=== PATIENT | male | born 1975 | race Caucasian/White ===

== ENCOUNTER 2019-07-06 13:33 | Emergency (ER) | payer SELFPAY ==
[~2019-07-06] VITALS: Ht 165.1 cm; Wt 90.7 kg
[2019-07-06 13:55] VITALS: BP 137/87
[2019-07-06 14:33] LABS: INFLUENZA A PATIENT NEGATIVE (NEGATIVE); INFLUENZA B PATIENT NEGATIVE (NEGATIVE)
--- NOTE | 2019-07-06 15:02 | RAD ---
EXAM: Chest, 2 views. HISTORY: Cough. COMPARISON: None. FINDINGS: 2 views of the chest are obtained. There is a right infrahilar interstitial infiltrate. There is retrocardiac opacity likely due to pulmonary vascular shadows. There is no pleural effusion or pneumothorax. The heart is normal in size. IMPRESSION: Right infrahilar infiltrate. Electronically signed by: Vane Woo MD (07/06/2019 2:59 PM) [place] [id number]
[2019-07-06] MEDS ORDERED: DOXY100T PO (15:24)
[2019-07-06] MEDS ORDERED: ALBU2.5V8 IH (15:24)
[2019-07-06] MEDS ORDERED: PRED50TA PO (15:24)
--- NOTE | 2019-07-06 15:25 | PHYS DOC ---
Adult General Chief Complaint Chief Complaint: COUGH HPI HPI Patient is a 43 year old male who presents to the ED today complaining of cough and nasal congestion, symptoms began yesterday. Review of Systems Review of Systems Constitutional: Denies fever or chills [] Eyes: Denies change in visual acuity, redness, or eye pain [] HENT: Reports nasal congestion, denies sore throat [] Respiratory: Reports cough, denies shortness of breath [] Cardiovascular: No additional information not addressed in HPI [] GI: Denies abdominal pain, nausea, vomiting, bloody stools or diarrhea [] : Denies dysuria or hematuria [] Musculoskeletal: Denies back pain or joint pain [] Integument: Denies rash or skin lesions [] Neurologic: Denies headache, focal weakness or sensory changes [] All other systems were reviewed and found to be within normal limits, except as documented in this note. Allergies Allergies Allergies Coded Allergies Type Severity Reaction Last Updated Verified Penicillins Allergy Severe RASH 07/06/19 Yes sulfamethoxazole Allergy Severe MEGAN CAROLINA SYNDROME 07/06/19 Yes trimethoprim Allergy Severe MEGAN [place] SYNDROME 07/06/19 Yes vancomycin Allergy Severe MARIE SKIN 07/06/19 Yes Physical Exam Physical Exam Constitutional: Well developed, well nourished, no acute distress, non-toxic appearance. [] HENT: Normocephalic, atraumatic, bilateral external ears normal, oropharynx moist, no oral exudates, nose normal. [] Eyes: PERRLA, EOMI, conjunctiva normal, no discharge. [] Neck: Normal range of motion, no tenderness, supple, no stridor. [] Cardiovascular:Heart rate regular rhythm, no murmur [] Lungs & Thorax: Bilateral breath sounds clear to auscultation [] Abdomen: Bowel sounds normal, soft, no tenderness, no masses, no pulsatile masses. [] Skin: Warm, dry, no erythema, no rash. [] Back: No tenderness, no CVA tenderness. [] Extremities: No tenderness, no cyanosis, no clubbing, ROM intact, no edema. [] Neurologic: Alert and oriented X 3, normal motor function, normal sensory func tion, no focal deficits noted. [] Psychologic: Affect normal, judgement normal, mood normal. [] Current Patient Data Lab Values Laboratory Tests Test 07/06/19 14:05 Influenza Type A Antigen Negative (NEGATIVE) Influenza Type B Antigen Negative (NEGATIVE) EKG EKG [] Radiology/Procedures Radiology/Procedures []PROCEDURE: CHEST PA & LATERAL EXAM: Chest, 2 views. HISTORY: Cough. COMPARISON: None. FINDINGS: 2 views of the chest are obtained. There is a right infrahilar interstitial infiltrate. There is retrocardiac opacity likely due to pulmonary vascular shadows. There is no pleural effusion or pneumothorax. The heart is normal in size. IMPRESSION: Right infrahilar infiltrate. Electronically signed by: Vane Melendez MD (07/06/2019 2:59 PM) [place] [id number] DICTATED and SIGNED BY: VANE MELENDEZ MD DATE: 07/06/19 3673 Course & Med Decision Making Course & Med Decision Making Pertinent Labs and Imaging studies reviewed. (See chart for details) This is a 43-year-old male patient presented to the ED today with cough and nasal congestion, symptoms began yesterday. Negative influenza A or B. Chest x- ray noted for right infrahilar infiltrate. Discharged to home on doxycycline. Follow-up with PCP in the course of this week or next week. Dragon Disclaimer Dragon Disclaimer This electronic medical record was generated, in whole or in part, using a voice recognition dictation system. Departure Departure Impression: Primary Impression: Right middle lobe pneumonia Disposition: HOME, SELF-CARE Condition: STABLE Referrals: NILAM COLORADO (PCP) Follow up with your doctor in 1-2 weeks Patient Instructions: Pneumonia, Adult, [id number] Additional Instructions: You were evaluated in the emergency room and noted to have pneumonia. We put you on antibiotics, ensure you complete them. Kindly follow-up with your doctor on Wednesday. Scripts Albuterol Sulfate (PROAIR HFA INHALER) 8.5 Gm Hfa.aer.ad 2 PUFF IH PRN Q4-6HRS PRN for wheezing for 21 Days, #1 INHALER 0 Refills Prov: ARMEN ESCOBEDO K9 HANDLER 07/06/19 Prednisone (PREDNISONE) 50 Mg Tablet 1 TAB PO DAILY, #5 TAB Prov: MUTUNGAARMEN K9 HANDLER 07/06/19 Doxycycline Hyclate (DOXYCYCLINE HYCLATE) 100 Mg Tablet 1 TAB PO BID, #14 TAB Prov: MUTDOTTIEAARMEN K9 HANDLER 07/06/19 Problem Qualifiers Primary Impression: Right middle lobe pneumonia Pneumonia type: due to unspecified organism Qualified Codes: J18.9 - Pneumonia, unspecified organism ARMEN ESCOBEDO APRN Jul 06, 2019 15:25
== END 2019-07-06 15:32 | disposition home or self-care (01) ==
LOC: ER 13:33
DX: J18.1 Lobar pneumonia, unspecified organism (principal); Z88.0 Allergy status to penicillin; Z88.1 Allergy status to other antibiotic agents; Z88.2 Allergy status to sulfonamides
CPT/HCPCS: 71046; 87804; 99285-25

== ENCOUNTER 2019-07-13 04:32 | Inpatient (IN) | payer SELFPAY ==
[~2019-07-13] VITALS: Ht 167.6 cm; Wt 89.4 kg
[2019-07-13] VITALS (20 sets, daily range): BP systolic 97–152; BP diastolic 57–90
[~2019-07-13 04:32] MED LIST: ALBU2.5V8 IH; DOXY100T PO; PRED50TA PO
[2019-07-13] MEDS ORDERED: NITROGLYCERIN SUBLINGUAL 0.4 MG BOTTLE OF 25. SL PRN ×3 (04:45→20:00)
[2019-07-13 04:58] LABS: CREATININE ISTAT 1.2 mg/dL (0.5-1.4); HEMOGLOBIN ISTAT 18.4 g/dL (14-18); ION CA ISTAT 1.17 mmol/L (1.13-1.32); POTASSIUM ISTAT 3.8 mmol/L (3.5-5.0)
[2019-07-13] MEDS ORDERED: NITROGLYCERIN OINT 1 GM PACKET. ONE (04:58)
[2019-07-13] MEDS ORDERED: ASPIRIN CHEWABLE 81 MG TABLET. PO ONE (05:00)
--- NOTE | 2019-07-13 05:00 | PHYS DOC ---
Past Medical History Past Medical History: GERD, High Cholesterol, Hypertension, Hypothyroid Additional Past Medical Histor: INSOMNIA,STOMACH ULCERS Past Surgical History: Cholecystectomy, Tonsillectomy Additional Past Surgical Histo: X 3 BACK SURGERIES,RIGHT ELBOW AND RIGHT SHOULDER Alcohol Use: None Drug Use: None Adult General Chief Complaint Chief Complaint: CHEST PAIN HPI HPI 43-year-old male presents to the emergency Department complaints of chest pain. Patient states the pain awoke him approximately 0200 with complaints of sharp pain, radiating down his left arm. Patient has underlying history of hypertension, diabetes. Patient BP elevated in the 200's upon arrival. He does complain of nausea, no vomiting, diaphoresis or SOB appreciated on exam. Nothing makes pain worse, nothing makes pain better prior to his arrival. Patient received ASA 324mg po, nitroglycerin 0.4 mg - BP improved however pain still persistent pain. 1/2 inch nitropaste applied. Cardiology consulted - 510, no STEMI will see in consultation. Review of Systems Review of Systems Constitutional: Denies fever or chills [] Respiratory: Denies cough or shortness of breath [] Cardiovascular: No additional information not addressed in HPI [] GI: Denies abdominal pain, + nausea, no vomiting, bloody stools or diarrhea [] Musculoskeletal: Denies back pain or joint pain [] Neurologic: Denies headache, focal weakness or sensory changes [] All other systems were reviewed and found to be within normal limits, except as documented in this note. Current Medications Current Medications Current Medications Medications (Trade) Dose Ordered Sig/Devin Start Time Stop Time Status Last Admin Dose Admin Aspirin (Children'S Aspirin) 324 mg 1X ONCE 07/13/19 05:00 07/13/19 05:01 DC 07/13/19 04:48 324 MG Heparin Sodium (Porcine) (Heparin Sodium) 2,200 unit PRN Q6HRS PRN 07/13/19 05:15 Heparin Sodium/ Dextrose 250 ml @ 0 mls/hr CONT PRN 07/13/19 05:15 07/13/19 05:25 10.7 MLS/HR Info (Anti-Coagulation Monitoring By Pharmacy) 1 each PRN DAILY PRN 07/13/19 05:15 07/13/19 06:17 1 EACH Nitroglycerin (Nitro-Bid Oint) 1 inch STK-MED ONCE 07/13/19 04:58 07/13/19 04:59 DC Nitroglycerin (Nitrostat) 0.4 mg PRN Q5MIN PRN 07/13/19 04:45 07/13/19 05:46 DC 07/13/19 04:49 0.4 MG Allergies Allergies Allergies Coded Allergies Type Severity Reaction Last Updated Verified Penicillins Allergy Severe RASH 07/06/19 Yes sulfamethoxazole Allergy Severe MEGAN CAROLINA SYNDROME 07/06/19 Yes trimethoprim Allergy Severe MEGNA CAROLINA SYNDROME 07/06/19 Yes vancomycin Allergy Severe MARIE SKIN 07/06/19 Yes Physical Exam Physical Exam Constitutional: Well developed, well nourished, mild distress 2/2 pain, non- toxic appearance. [] HENT: Normocephalic, atraumatic, bilateral external ears normal, oropharynx moist, no oral exudates, nose normal. [] Eyes: PERRLA, EOMI, conjunctiva normal, no discharge. [] Cardiovascular:Heart rate regular rhythm, no murmur [] Lungs & Thorax: Bilateral breath sounds clear to auscultation [] Abdomen: Bowel sounds normal, soft, no tenderness, no masses, no pulsatile masses. [] Skin: Warm, dry, no erythema, no rash. [] Extremities: No tenderness, no edema. [] Neurologic: Alert and oriented X 3,no focal deficits noted. [] Psychologic: Affect normal, judgement normal, mood normal. [] Current Patient Data Vital Signs Vital Signs Date Time Temp Pulse Resp B/P (MAP) Pulse Ox O2 Delivery O2 Flow Rate FiO2 07/13/19 04:55 85 18 126/80 (95) 96 Room Air 07/13/19 04:35 97.6 97.6 Lab Values Laboratory Tests Test 07/13/19 04:40 07/13/19 04:47 07/13/19 04:52 White Blood Count 10.0 x10^3/uL (4.0-11.0) Red Blood Count 5.53 x10^6/uL (4.30-5.70) Hemoglobin 18.3 g/dL (13.0-17.5) H Hematocrit 52.6 % (39.0-53.0) Mean Corpuscular Volume 95 fL (79-100) Mean Corpuscular Hemoglobin 33 pg (25-35) Mean Corpuscular Hemoglobin Concent 35 g/dL (31-37) Red Cell Distribution Width 13.1 % (11.5-14.5) Platelet Count 217 x10^3/uL (140-400) Neutrophils (%) (Auto) 47 % (31-73) Lymphocytes (%) (Auto) 40 % (24-48) Monocytes (%) (Auto) 7 % (0-9) Eosinophils (%) (Auto) 5 % (0-3) H Basophils (%) (Auto) 1 % (0-3) Neutrophils # (Auto) 4.7 x10^3/uL (1.8-7.7) Lymphocytes # (Auto) 4.1 x10^3/uL (1.0-4.8) Monocytes # (Auto) 0.7 x10^3/uL (0.0-1.1) Eosinophils # (Auto) 0.5 x10^3/uL (0.0-0.7) Basophils # (Auto) 0.1 x10^3/uL (0.0-0.2) Sodium Level 133 mmol/L (136-145) L Potassium Level 4.0 mmol/L (3.5-5.1) Chloride Level 100 mmol/L (98-107) Carbon Dioxide Level 27 mmol/L (21-32) Anion Gap 6 (6-14) 14 mmol/L (6-14) Blood Urea Nitrogen 16 mg/dL (8-26) Creatinine 1.2 mg/dL (0.7-1.3) Estimated GFR (Cockcroft-Gault) 65.8 BUN/Creatinine Ratio 13 (6-20) Glucose Level 223 mg/dL (70-99) H 214 mg/dL (70-99) H Calcium Level 8.9 mg/dL (8.5-10.1) Magnesium Level 2.1 mg/dL (1.8-2.4) Total Bilirubin 0.4 mg/dL (0.2-1.0) Aspartate Amino Transferase (AST) 19 U/L (15-37) Alanine Aminotransferase (ALT) 22 U/L (16-63) Alkaline Phosphatase 92 U/L (46-116) Troponin I Quantitative 0.165 ng/mL (0.000-0.055) VP-Tgp-A-Type Natriuretic Peptide 52 pg/mL (0-124) Total Protein 7.2 g/dL (6.4-8.2) Albumin 3.3 g/dL (3.4-5.0) L Albumin/Globulin Ratio 0.8 (1.0-1.7) L POC Troponin I 0.07 ng/ml (<0.08) POC Hemoglobin 18.4 g/dL (14-18) H POC Hematocrit 54 % (37-52) H POC Sodium 136 mmol/L (135-145) POC Potassium 3.8 mmol/L (3.5-5.0) POC Chloride 100 mmol/L (98-110) POC Total CO2 27 mmol/L (23-32) POC Blood Urea Nitrogen 16 mg/dL (8-26) POC Creatinine 1.2 mg/dL (0.5-1.4) POC Ionized Calcium (Mike) 1.17 mmol/L (1.13-1.32) Laboratory Tests 07/13/19 04:40 Laboratory Tests 07/13/19 04:40 07/13/19 04:52 EKG EKG EKG reviewed 0 436, ST elevation appreciated V1, no evidence of reciprocal changes appreciated. Sinus rhythm, normal axis, heart rate 83, repeat EKG 0 456 V1 elevation subsequently improved continued without evidence of her supper call changes, sinus rhythm, heart rate 81[] Radiology/Procedures Radiology/Procedures [] Course & Med Decision Making Course & Med Decision Making Pertinent Labs and Imaging studies reviewed. (See chart for details) [] 43-year-old male presents to the emergency Department complaints of chest pain. Patient states the pain awoke him approximately 0200 with complaints of sharp pain, radiating down his left arm. Patient has underlying history of hypertension, diabetes. Patient BP elevated in the 200's upon arrival. He does complain of nausea, no vomiting, diaphoresis or SOB appreciated on exam. Nothing makes pain worse, nothing makes pain better prior to his arrival. Patient received ASA 324mg po, nitroglycerin 0.4 mg - BP improved however pain still persistent pain. 1/2 inch nitropaste applied. Cardiology consulted - 510, no STEMI will see in consultation. Trop 0.165 (per lab) Heparin drip initiated in the ER Cardiology consult placed - discussed with Dr. Pillai Discussed admit with patient Latoya Disclaimer Dragon Disclaimer This electronic medical record was generated, in whole or in part, using a voice recognition dictation system. Departure Departure Impression: Primary Impression: NSTEMI (non-ST elevated myocardial infarction) Additional Impressions: Hypertension Diabetes Disposition: 09 ADMITTED INPATIENT Admitting Physician: CONNOR Condition: GUARDED Referrals: NILAM COLORADO (PCP) Critical Care Time Critical care time was 40 minutes exclusive of procedures. Problem Qualifiers Additional Impressions: Hypertension Hypertension type: essential hypertension Qualified Codes: I10 - Essential (primary) hypertension Diabetes Diabetes mellitus type: type 2 Diabetes mellitus half-way insulin use: without termite control servicer use Diabetes mellitus complication status: with hype rglycemia Qualified Codes: E11.65 - Type 2 diabetes mellitus with hyperglycemia ELAINA BLACK MD Jul 13, 2019 05:00
[2019-07-13 05:05] LABS: BASO # 0.1 x10^3/uL (0.0-0.2); BASO % 1 % (0-3); EOS # 0.5 x10^3/uL (0.0-0.7); EOS % 5 % (0-3); HEMATOCRIT 52.6 % (39.0-53.0); HEMOGLOBIN 18.3 g/dL (13.0-17.5); LYMPH # 4.1 x10^3/uL (1.0-4.8); LYMPH % 40 % (24-48); MEAN CORPUSCULAR HEMOGLOBIN 33 pg (25-35); MEAN CORPUSCULAR HGB CONC 35 g/dL (31-37); MEAN CORPUSCULAR VOLUME 95 fL (79-100); MONO # 0.7 x10^3/uL (0.0-1.1); MONO % 7 % (0-9); NEUT # 4.7 x10^3/uL (1.8-7.7); NEUT % 47 % (31-73); PLATELET COUNT 217 x10^3/uL (140-400); RED BLOOD COUNT 5.53 x10^6/uL (4.30-5.70); RED CELL DISTRIBUTION WIDTH 13.1 % (11.5-14.5)
[2019-07-13] MEDS ORDERED: HEPARIN for IV BOLUS 10,000 UNIT/10 ML VIAL. IV PRN (05:15)
[2019-07-13] MEDS ORDERED: HEPARIN 25,000UTS/250ML PREMIX 250 ML IV PRN (05:15)
[2019-07-13] MEDS ORDERED: ANTI-COAG MONITOR BY PHARMACY. MC PRN (05:15)
[2019-07-13 05:20] LABS: CALCIUM 8.9 mg/dL (8.5-10.1); CREATININE 1.2 mg/dL (0.7-1.3); GFR 65.8
[2019-07-13 05:24] LABS: ALBUMIN 3.3 g/dL (3.4-5.0); ALBUMIN/GLOBULIN RATIO 0.8 (1.0-1.7); MAGNESIUM 2.1 mg/dL (1.8-2.4); TOTAL BILIRUBIN 0.4 mg/dL (0.2-1.0); TOTAL PROTEIN 7.2 g/dL (6.4-8.2)
[2019-07-13] MEDS ORDERED: HEPARIN for IV BOLUS 10,000 UNIT/10 ML VIAL. IV ONE ×2 (05:30→11:00)
[2019-07-13] MEDS ORDERED: ACETAMINOPHEN 325 MG TABLET. PO PRN ×2 (05:45→20:00)
[2019-07-13] MEDS ORDERED: ONDANSETRON PF 4 MG/2 ML VIAL. IV PRN (05:45)
[2019-07-13] MEDS ORDERED: MORPHINE SULFATE 2 MG/ML VIAL. IV PRN (05:45)
--- NOTE | 2019-07-13 06:05 | EKG ---
[facility] [address] [place] [address] Test Date: 2019-07-13 Test Time: 04:36:46 Pat Name: ANANYA NOBLE Department: Room: Gender: M Employment Coach: : 1975 Requested By: ELAINA BLACK Order Number: [id number] Reading MD: Measurements Intervals [place] Rate: 83 P: 28 OR: 152 QRS: 59 QRSD: 92 T: 24 QT: 342 QTc: 407 Interpretive Statements SINUS RHYTHM NON SPECIFIC ST-T ABNORMALITY (ELEVATION) OTHERWISE NORMAL ECG No previous ECG available for comparison
--- NOTE | 2019-07-13 07:26 | RAD ---
PORTABLE CHEST 1V History: Chest pain Comparison: July 06, 2019 Findings: Single view of the chest is submitted. There is some persistent infiltrate of the medial right lung base probably unchanged allowing for lesser degree of inspiration for this exam. No new infiltrate, pleural fluid, or pneumothorax is identified. Cardiac silhouette is stable. Impression: 1. Medial right lung base infiltrate is likely unchanged. Electronically signed by: Ba Tuttle MD (07/13/2019 7:23 AM) [id number]
[2019-07-13] MEDS ORDERED: ONDANSETRON PF 4 MG/2 ML VIAL. IVP PRN (07:30)
[2019-07-13] MEDS ORDERED: ALBUTEROL SULFATE 2.5 MG/3 ML NEBU. NEB PRN (07:30)
[2019-07-13] MEDS ORDERED: ACETAMINOPHEN 500 MG TABLET PO PRN (07:30)
[2019-07-13] MEDS ORDERED: ACETAMINOPHEN/CODEINE 300/30MG TABLET. PO PRN (07:30)
[2019-07-13] MEDS ORDERED: FLU VAX QS 2019-20 (36MOS+)/PF 0.5 ML SYRINGE. VAX IM ONE (07:45)
--- NOTE | 2019-07-13 09:10 | EKG ---
[facility] [address] [place] [address] Test Date: 2019-07-13 Test Time: 09:07:37 Pat Name: ANANYA NOBLE Department: Room: 104 1 Gender: M Protective Services Officer: : 1975 Requested By: NABILA LEGGETT Order Number: [id number] Reading MD: Measurements Intervals [place] Rate: 83 P: 26 RI: 152 QRS: 34 QRSD: 86 T: 31 QT: 348 QTc: 414 Interpretive Statements SINUS RHYTHM NORMAL ECG RI6.02 No previous ECG available for comparison
[2019-07-13] MEDS ORDERED: IV NORMAL SALINE 1000ML BAG 1,000 ML IV ONE (09:15)
--- NOTE | 2019-07-13 09:21 | PDOC1 ---
History and Physical Date of Admission Date of Admission DATE: 07/13/19 TIME: 09:16 Identification/Chief Complaint Chief Complaint left sided CP at 2 AM Source Source: Caregiver, Chart review, Patient History of Present Illness History of Present Illness 43 yo white female, no meds bec of non compliance, on lisinopril supposedly for CKD, admitted for concerning description of left sided CP that woke him up at 2 AM, left neck/.jaw, left arm, became cold/sweaty? relieved by morphine, SOME MILD enzyme spillage trop. 0.105., LAst MPI 2017., normal, never had LHC done, SMOKER a pack a day, DM 2 hgba1c 10, on both OHA plus insulin, Occ drinker, Fam at bedside disappointed with his smoking and non compliance, SBP 100s, some left sided CP when i was interviewing him, NO arrhhthymias on monitor so far, Past Medical History Cardiovascular: HTN Endocrine: Diabetes Past Surgical History Past Surgical History: No pertinent history Family History Family History: High Cholestrol, Hypertension Social History Smoke: <1 pack per day ALCOHOL: occassional Drugs: None Current Medications Current Medications Current Medications Aspirin (Children'S Aspirin) 324 mg 1X ONCE PO Last administered on 07/13/19at 04:48; Start 07/13/19 at 05:00; Stop 07/13/19 at 05:01; Status DC Nitroglycerin (Nitrostat) 0.4 mg PRN Q5MIN PRN SL CHEST PAIN Last administered on 07/13/19at 04:49; Start 07/13/19 at 04:45; Stop 07/13/19 at 05:46; Status DC Nitroglycerin (Nitro-Bid Oint) 1 inch STK-MED ONCE .ROUTE ; Start 07/13/19 at 04:58; Stop 07/13/19 at 04:59; Status DC Heparin Sodium (Porcine) (Heparin Sodium) 4,000 unit 1X ONCE IV Last administered on 07/13/19at 05:21; Start 07/13/19 at 05:30; Stop 07/13/19 at 05:31; Status DC Heparin Sodium/ Dextrose 250 ml @ 0 mls/hr CONT PRN IV PER PROTOCOL Last administered on 07/13/19at 05:25; Start 07/13/19 at 05:15 Heparin Sodium (Porcine) (Heparin Sodium) 2,200 unit PRN Q6HRS PRN IV FOR UFH LEVEL LESS THAN 0.2; Start 07/13/19 at 05:15 Info (Anti-Coagulation Monitoring By Pharmacy) 1 each PRN DAILY PRN MC SEE COMMENTS Last administered on 07/13/19at 06:17; Start 07/13/19 at 05:15 Ondansetron HCl (Zofran) 4 mg PRN Q8HRS PRN IV NAUSEA/VOMITING 1ST CHOICE; Start 07/13/19 at 05:45; Stop 07/13/19 at 07:20; Status DC Morphine Sulfate (Morphine Sulfate) 2 mg PRN Q2HR PRN IV SEVERE PAIN 7-10 Last administered on 07/13/19at 07:38; Start 07/13/19 at 05:45; Stop 07/14/19 at 05:44 Acetaminophen (Tylenol) 650 mg PRN Q4HRS PRN PO FEVER; Start 07/13/19 at 05:45; Stop 07/13/19 at 07:20; Status DC Nitroglycerin (Nitrostat) 0.4 mg PRN Q5MIN PRN SL CHEST PAIN; Start 07/13/19 at 05:45; Stop 07/14/19 at 05:44 Acetaminophen (Tylenol) 500 mg PRN Q6HRS PRN PO MILD PAIN / TEMP; Start 07/13/19 at 07:30 Acetaminophen/ Codeine Phosphate (Tylenol #3) 1 tab PRN Q6HRS PRN PO MODERATE PAIN; Start 07/13/19 at 07:30 Ondansetron HCl (Zofran) 4 mg PRN Q6HRS PRN IVP NAUSEA/VOMITING; Start 07/13/19 at 07:30 Albuterol Sulfate (Ventolin Neb Soln) 2.5 mg PRN Q4HRS PRN NEB SHORTNESS OF BREATH; Start 07/13/19 at 07:30 Influenza Virus Vaccine Quadrival (Afluria Quad 2019-20 (3yr Up) Syringe) 0.5 ml ONCE ONCE VAX IM ; Start 07/13/19 at 07:45; Stop 07/13/19 at 07:46; Status DC Sodium Chloride 1,000 ml @ 75 mls/hr 1X ONCE IV ; Start 07/13/19 at 09:15; Stop 07/13/19 at 22:34 Active Scripts Active Proair Hfa Inhaler (Albuterol Sulfate) 8.5 Gm Hfa.aer.ad 2 Puff IH PRN Q4-6HRS PRN 21 Days Prednisone 50 Mg Tablet 1 Tab PO DAILY Doxycycline Hyclate 100 Mg Tablet 1 Tab PO BID Allergies Allergies: Coded Allergies: Penicillins (Verified Allergy, Severe, RASH, 07/06/19) sulfamethoxazole (Verified Allergy, Severe, MEGAN CAROLINA SYNDROME, ) trimethoprim (Verified Allergy, Severe, MEGAN [place]OL[place] SYNDROME, 07/06/19) vancomycin (Verified Allergy, Severe, MARIE SKIN, 07/06/19) ROS Review of System as per HPI,a ll else is neg Physical Exam General: Alert, Oriented X3, Cooperative, No acute distress HEENT: Atraumatic, PERRLA, EOMI Lungs: Clear to auscultation, Normal air movement Heart: S1S2, RRR, no thrills, no rubs, no gallops, no murmurs Cardiovascular: S1, S2 Abdomen: Normal bowel sounds, Soft, No tenderness, No hepatosplenomegaly, No masses Male Genitals Exam: normal genitalia, normal prostate Rectal Exam: not examined PELVIC: Nml ext genitalia Extremities: No clubbing, No cyanosis, No edema, Normal pulses, No tenderness/swelling Skin: No rashes, No breakdown, No significant lesion Neuro: Normal gait, Normal speech, Strength at 5/5 X4 ext, Normal tone, Sensation intact, Cranial nerves 3-12 NL, Reflexes 2+ Psych/Mental Status: Mental status NL, Mood NL Vitals Vitals Vital Signs Date Time Temp Pulse Resp B/P (MAP) Pulse Ox O2 Delivery O2 Flow Rate FiO2 07/13/19 07:38 Room Air 07/13/19 06:29 97.8 90 12 115/77 (90) 96 97.8 Labs Labs Laboratory Tests Test 07/13/19 04:40 07/13/19 04:47 07/13/19 04:52 07/13/19 06:24 White Blood Count 10.0 x10^3/uL (4.0-11.0) Red Blood Count 5.53 x10^6/uL (4.30-5.70) Hemoglobin 18.3 g/dL (13.0-17.5) Hematocrit 52.6 % (39.0-53.0) Mean Corpuscular Volume 95 fL (79-100) Mean Corpuscular Hemoglobin 33 pg (25-35) Mean Corpuscular Hemoglobin Concent 35 g/dL (31-37) Red Cell Distribution Width 13.1 % (11.5-14.5) Platelet Count 217 x10^3/uL (140-400) Neutrophils (%) (Auto) 47 % (31-73) Lymphocytes (%) (Auto) 40 % (24-48) Monocytes (%) (Auto) 7 % (0-9) Eosinophils (%) (Auto) 5 % (0-3) Basophils (%) (Auto) 1 % (0-3) Neutrophils # (Auto) 4.7 x10^3/uL (1.8-7.7) Lymphocytes # (Auto) 4.1 x10^3/uL (1.0-4.8) Monocytes # (Auto) 0.7 x10^3/uL (0.0-1.1) Eosinophils # (Auto) 0.5 x10^3/uL (0.0-0.7) Basophils # (Auto) 0.1 x10^3/uL (0.0-0.2) Sodium Level 133 mmol/L (136-145) Potassium Level 4.0 mmol/L (3.5-5.1) Chloride Level 100 mmol/L (98-107) Carbon Dioxide Level 27 mmol/L (21-32) Anion Gap 6 (6-14) 14 mmol/L (6-14) Blood Urea Nitrogen 16 mg/dL (8-26) Creatinine 1.2 mg/dL (0.7-1.3) Estimated GFR (Cockcroft-Gault) 65.8 BUN/Creatinine Ratio 13 (6-20) Glucose Level 223 mg/dL (70-99) 214 mg/dL (70-99) Calcium Level 8.9 mg/dL (8.5-10.1) Magnesium Level 2.1 mg/dL (1.8-2.4) Total Bilirubin 0.4 mg/dL (0.2-1.0) Aspartate Amino Transf (AST/SGOT) 19 U/L (15-37) Alanine Aminotransferase (ALT/SGPT) 22 U/L (16-63) Alkaline Phosphatase 92 U/L (46-116) Troponin I Quantitative 0.165 ng/mL (0.000-0.055) PN-Zxz-J-Type Natriuretic Peptide 52 pg/mL (0-124) Total Protein 7.2 g/dL (6.4-8.2) Albumin 3.3 g/dL (3.4-5.0) Albumin/Globulin Ratio 0.8 (1.0-1.7) Bedside Troponin I 0.07 ng/ml (<0.08) Bedside Hemoglobin 18.4 g/dL (14-18) Bedside Hematocrit 54 % (37-52) Bedside Sodium 136 mmol/L (135-145) Bedside Potassium 3.8 mmol/L (3.5-5.0) Bedside Chloride 100 mmol/L (98-110) Bedside Total CO2 27 mmol/L (23-32) Bedside Blood Urea Nitrogen 16 mg/dL (8-26) Bedside Creatinine 1.2 mg/dL (0.5-1.4) Bedside Ionized Calcium (Mike) 1.17 mmol/L (1.13-1.32) Glucose (Fingerstick) 208 mg/dL (70-99) Laboratory Tests Test 07/13/19 04:40 07/13/19 04:47 07/13/19 04:52 07/13/19 06:24 White Blood Count 10.0 x10^3/uL (4.0-11.0) Red Blood Count 5.53 x10^6/uL (4.30-5.70) Hemoglobin 18.3 g/dL (13.0-17.5) Hematocrit 52.6 % (39.0-53.0) Mean Corpuscular Volume 95 fL (79-100) Mean Corpuscular Hemoglobin 33 pg (25-35) Mean Corpuscular Hemoglobin Concent 35 g/dL (31-37) Red Cell Distribution Width 13.1 % (11.5-14.5) Platelet Count 217 x10^3/uL (140-400) Neutrophils (%) (Auto) 47 % (31-73) Lymphocytes (%) (Auto) 40 % (24-48) Monocytes (%) (Auto) 7 % (0-9) Eosinophils (%) (Auto) 5 % (0-3) Basophils (%) (Auto) 1 % (0-3) Neutrophils # (Auto) 4.7 x10^3/uL (1.8-7.7) Lymphocytes # (Auto) 4.1 x10^3/uL (1.0-4.8) Monocytes # (Auto) 0.7 x10^3/uL (0.0-1.1) Eosinophils # (Auto) 0.5 x10^3/uL (0.0-0.7) Basophils # (Auto) 0.1 x10^3/uL (0.0-0.2) Sodium Level 133 mmol/L (136-145) Potassium Level 4.0 mmol/L (3.5-5.1) Chloride Level 100 mmol/L (98-107) Carbon Dioxide Level 27 mmol/L (21-32) Anion Gap 6 (6-14) 14 mmol/L (6-14) Blood Urea Nitrogen 16 mg/dL (8-26) Creatinine 1.2 mg/dL (0.7-1.3) Estimated GFR (Cockcroft-Gault) 65.8 BUN/Creatinine Ratio 13 (6-20) Glucose Level 223 mg/dL (70-99) 214 mg/dL (70-99) Calcium Level 8.9 mg/dL (8.5-10.1) Magnesium Level 2.1 mg/dL (1.8-2.4) Total Bilirubin 0.4 mg/dL (0.2-1.0) Aspartate Amino Transf (AST/SGOT) 19 U/L (15-37) Alanine Aminotransferase (ALT/SGPT) 22 U/L (16-63) Alkaline Phosphatase 92 U/L (46-116) Troponin I Quantitative 0.165 ng/mL (0.000-0.055) WJ-Tqd-W-Type Natriuretic Peptide 52 pg/mL (0-124) Total Protein 7.2 g/dL (6.4-8.2) Albumin 3.3 g/dL (3.4-5.0) Albumin/Globulin Ratio 0.8 (1.0-1.7) Bedside Troponin I 0.07 ng/ml (<0.08) Bedside Hemoglobin 18.4 g/dL (14-18) Bedside Hematocrit 54 % (37-52) Bedside Sodium 136 mmol/L (135-145) Bedside Potassium 3.8 mmol/L (3.5-5.0) Bedside Chloride 100 mmol/L (98-110) Bedside Total CO2 27 mmol/L (23-32) Bedside Blood Urea Nitrogen 16 mg/dL (8-26) Bedside Creatinine 1.2 mg/dL (0.5-1.4) Bedside Ionized Calcium (Mike) 1.17 mmol/L (1.13-1.32) Glucose (Fingerstick) 208 mg/dL (70-99) VTE Prophylaxis Ordered VTE Prophylaxis Devices: Yes VTE Pharmacological Prophylaxi: Yes Assessment/Plan Assessment/Plan 1. NSTEMI - started on heparin gt by cards 2. SMOKER 3. DM 2 hgba1c 10, on OHA + insulin 4. CKD on rachel inhib (lisinopril) 5. NO HTN PLAN: NPO till cards rounds HEparin gtt Lisinopril for CKD vero patch ARON FULL CODE dw him and fam at BHARAT Vega MD Jul 13, 2019 09:21
--- NOTE | 2019-07-13 09:22 | PDOC2 ---
NABILA LEGGETT CLINICAL ASSESSMENT MANAGER 07/13/19 0922: CARDIAC CONSULT DATE OF CONSULT Date of Consult DATE: 07/13/19 TIME: 08:48 REASON FOR CONSULT Reason for Consult: NSTEMI REFERRING PHYSICIAN Referring Physician: Edgard SOURCE Source: Chart review, Patient HISTORY OF PRESENT ILLNESS HISTORY OF PRESENT ILLNESS This is a pleasant 43 yo male admitted for complains of chest pain. Reports that he has been having intermittent chest pain in the last few months. He does have persistent FRAUSTO. He woke up around 2 AM with chest pain with tightness and sometimes stabbing pain that went to his left jaw and left arm. Positive for nausea, clammy but no vomiting. Positive for SOA. He tried moving around changing positions but remained. He was treated with heparin and NTG and ASA and now better. No prior hx of CAD nor VTE. No recent falls or any injuries. He smokes a pack of tobacco a day. He takes multiple meds for DM2 but his BG remains not controlled due to diet noncompliance. He also takes ASA daily. No bleeding or clotting disorders. She had pneumonia not too long ago and finished his antibiotics. PAST MEDICAL HISTORY Cardiovascular: HTN, Hyperlipidemia Pulmonary: Pneumonia CENTRAL NERVOUS SYSTEM: Other (No pertinent history) GI: No pertinent hx, Peptic Ulcer disease Heme/Onc: No pertinent hx Hepatobiliary: No pertinent hx Musculoskeletal: low back pain, Osteoarthritis, Other (cervical stenosis) Rheumatologic: No pertinent hx Infectious disease: No pertinent hx ENT: No pertinent hx Renal/: Chronic renal insuff Endocrine: Diabetes (2), Hypothyroidism Dermatology: No pertinent hx PAST SURGICAL HISTORY Past Surgical History: Arthroscopy (right RTC), Cholecystectomy, Tonsillectomy, Other (back surgeries; LMD) FAMILY HISTORY Family History: Coronary Artery Disease SOCIAL HISTORY Smoke: 1 pack per day ALCOHOL: none Drugs: None Lives: with Family CURRENT MEDICATIONS CURRENT MEDICATIONS Current Medications Medications (Trade) Dose Ordered Sig/Devin Route PRN Reason Start Time Stop Time Status Last Admin Dose Admin Aspirin (Children'S Aspirin) 324 mg 1X ONCE PO 07/13/19 05:00 07/13/19 05:01 DC 07/13/19 04:48 Nitroglycerin (Nitrostat) 0.4 mg PRN Q5MIN PRN SL CHEST PAIN 07/13/19 04:45 07/13/19 05:46 DC 07/13/19 04:49 Heparin Sodium (Porcine) (Heparin Sodium) 4,000 unit 1X ONCE IV 07/13/19 05:30 07/13/19 05:31 DC 07/13/19 05:21 Heparin Sodium/ Dextrose 250 ml @ 0 mls/hr CONT PRN IV PER PROTOCOL 07/13/19 05:15 07/13/19 05:25 Info (Anti-Coagulation Monitoring By Pharmacy) 1 each PRN DAILY PRN MC SEE COMMENTS 07/13/19 05:15 07/13/19 06:17 Morphine Sulfate (Morphine Sulfate) 2 mg PRN Q2HR PRN IV SEVERE PAIN 7-10 07/13/19 05:45 07/14/19 05:44 07/13/19 07:38 ALLERGIES ALLERGIES: Coded Allergies: Penicillins (Verified Allergy, Severe, RASH, 07/06/19) sulfamethoxazole (Verified Allergy, Severe, MEGAN [place] SYNDROME, 07/06/19) trimethoprim (Verified Allergy, Severe, MEGAN [place] SYNDROME, 07/06/19) vancomycin (Verified Allergy, Severe, MARIE SKIN, 07/06/19) ROS Review of System 14 point ROS evaluated with pertinent positives noted per HPI PHYSICAL EXAM General: Alert, Oriented X3, Cooperative, No acute distress HEENT: Atraumatic, Mucous membr. moist/pink Lungs: Clear to auscultation, Normal air movement Heart: Regular rate (SR), Normal S1, Normal S2, No murmurs Abdomen: Soft, No tenderness Extremities: No cyanosis, No edema Skin: No breakdown, No significant lesion Neuro: Normal speech, Sensation intact Psych/Mental Status: Mental status NL, Mood NL MUSCULOSKELETAL: Osteoarthritic changes both hands VITALS/I&O VITALS/I&O: Vital Signs Date Time Temp Pulse Resp B/P (MAP) Pulse Ox O2 Delivery O2 Flow Rate FiO2 07/13/19 07:38 Room Air 07/13/19 06:29 97.8 90 12 115/77 (90) 96 97.8 LABS Lab: Laboratory Tests Test 07/13/19 04:40 07/13/19 04:47 07/13/19 04:52 07/13/19 06:24 White Blood Count 10.0 x10^3/uL (4.0-11.0) Red Blood Count 5.53 x10^6/uL (4.30-5.70) Hemoglobin 18.3 g/dL (13.0-17.5) H Hematocrit 52.6 % (39.0-53.0) Mean Corpuscular Volume 95 fL (79-100) Mean Corpuscular Hemoglobin 33 pg (25-35) Mean Corpuscular Hemoglobin Concent 35 g/dL (31-37) Red Cell Distribution Width 13.1 % (11.5-14.5) Platelet Count 217 x10^3/uL (140-400) Neutrophils (%) (Auto) 47 % (31-73) Lymphocytes (%) (Auto) 40 % (24-48) Monocytes (%) (Auto) 7 % (0-9) Eosinophils (%) (Auto) 5 % (0-3) H Basophils (%) (Auto) 1 % (0-3) Neutrophils # (Auto) 4.7 x10^3/uL (1.8-7.7) Lymphocytes # (Auto) 4.1 x10^3/uL (1.0-4.8) Monocytes # (Auto) 0.7 x10^3/uL (0.0-1.1) Eosinophils # (Auto) 0.5 x10^3/uL (0.0-0.7) Basophils # (Auto) 0.1 x10^3/uL (0.0-0.2) Sodium Level 133 mmol/L (136-145) L Potassium Level 4.0 mmol/L (3.5-5.1) Chloride Level 100 mmol/L (98-107) Carbon Dioxide Level 27 mmol/L (21-32) Anion Gap 6 (6-14) 14 mmol/L (6-14) Blood Urea Nitrogen 16 mg/dL (8-26) Creatinine 1.2 mg/dL (0.7-1.3) Estimated GFR (Cockcroft-Gault) 65.8 BUN/Creatinine Ratio 13 (6-20) Glucose Level 223 mg/dL (70-99) H 214 mg/dL (70-99) H Calcium Level 8.9 mg/dL (8.5-10.1) Magnesium Level 2.1 mg/dL (1.8-2.4) Total Bilirubin 0.4 mg/dL (0.2-1.0) Aspartate Amino Transferase (AST) 19 U/L (15-37) Alanine Aminotransferase (ALT) 22 U/L (16-63) Alkaline Phosphatase 92 U/L (46-116) Troponin I Quantitative 0.165 ng/mL (0.000-0.055) FF-Zvh-T-Type Natriuretic Peptide 52 pg/mL (0-124) Total Protein 7.2 g/dL (6.4-8.2) Albumin 3.3 g/dL (3.4-5.0) L Albumin/Globulin Ratio 0.8 (1.0-1.7) L POC Troponin I 0.07 ng/ml (<0.08) POC Hemoglobin 18.4 g/dL (14-18) H POC Hematocrit 54 % (37-52) H POC Sodium 136 mmol/L (135-145) POC Potassium 3.8 mmol/L (3.5-5.0) POC Chloride 100 mmol/L (98-110) POC Total CO2 27 mmol/L (23-32) POC Blood Urea Nitrogen 16 mg/dL (8-26) POC Creatinine 1.2 mg/dL (0.5-1.4) POC Ionized Calcium (Mike) 1.17 mmol/L (1.13-1.32) Glucose (Fingerstick) 208 mg/dL (70-99) H Laboratory Tests 07/13/19 04:40 Laboratory Tests 07/13/19 04:40 07/13/19 04:52 ASSESSMENT/PLAN ASSESSMENT/PLAN 1. NSTEMI: ACS features 2. HTN: controlled 3. HLP 4. DM2: on triple therapy reported uncontrolled BG with diet noncompliance 5. Hypothyroidism: on replacement 6. Recent pneumonia: he finished his antibiotics 7. Obesity 8. Tobaccoism with possible COPD 9. Possible mild CKD: reported proteinuria 10. Polycythemia Recommendations 1. [facility] [place] with possible PCI discussed, risks and benefits and agreeable to proceed 2. A1C, TSH, lipids, trend troponin. TTE 3. ASA, Heparin 4. Dietitian consult, diet compliance and smoking cessation and wt loss. FERNANDO HEAD MD 07/13/191956: CARDIAC CONSULT ASSESSMENT/PLAN ASSESSMENT/PLAN Patient seen and examined. Agree with above nurse practitioner note. Cardiac catheterization today revealed critical LAD stenosis status post PCI. See catheter report for full details. NABILA LEGGETT CLINICAL ASSESSMENT MANAGER Jul 13, 2019 09:22 FERNANDO HEAD MD Jul 13, 2019 19:57
[2019-07-13] MEDS ORDERED: LISI-334 PO (09:49)
[2019-07-13] MEDS ORDERED: IPRA4AER IH (09:49)
[2019-07-13] MEDS ORDERED: LEVO100T PO (09:49)
[2019-07-13] MEDS ORDERED: ASPI-630 PO (09:49)
[2019-07-13] MEDS ORDERED: GABA300C18 PO (09:49)
[2019-07-13] MEDS ORDERED: SITA50TA PO (09:49)
[2019-07-13] MEDS ORDERED: ATOR40TA59 PO (09:49)
[2019-07-13] MEDS ORDERED: INSU100I13 SQ ×2 (09:49)
[2019-07-13] MEDS ORDERED: CANA300T PO (09:49)
[2019-07-13] MEDS ORDERED: TIZA4TAB2 PO (09:49)
[2019-07-13 09:50] LABS: CHOLESTEROL/HDL RATIO 4.9
[2019-07-13] MEDS ORDERED: IOHEXOL 300 MG/ML 100ML VIAL. ONE (09:55)
[2019-07-13] MEDS ORDERED: LIDOCAINE 1% PF 2 ML VIAL. ONE (09:55)
[2019-07-13] MEDS ORDERED: MIDAZOLAM HCL/PF 2 MG/2 ML VIAL. ONE (10:07)
[2019-07-13] MEDS ORDERED: HEPARIN for IV BOLUS 10,000 UNIT/10 ML VIAL. ONE (10:07)
[2019-07-13] MEDS ORDERED: fentaNYL PF VIAL 100 MCG/2 ML VIAL ONE (10:07)
[2019-07-13] MEDS ORDERED: VERAPAMIL 5 MG/2 ML VIAL. ONE (10:07)
[2019-07-13] MEDS ORDERED: NITROGLYCERIN 200 MCG/2 ML SYRINGE FOR CATH/VASC LAB. ONE ×2 (10:08→10:55)
[2019-07-13] MEDS ORDERED: LIDOCAINE 1% PF 2 ML VIAL. INJ ONE (10:30)
[2019-07-13] MEDS ORDERED: fentaNYL PF VIAL 100 MCG/2 ML VIAL IV ONE (10:30)
[2019-07-13] MEDS ORDERED: NITROGLYCERIN 200 MCG/2 ML SYRINGE FOR CATH/VASC LAB. IART ONE (10:30)
[2019-07-13] MEDS ORDERED: MIDAZOLAM HCL/PF 2 MG/2 ML VIAL. IV ONE (10:30)
[2019-07-13] MEDS ORDERED: IOHEXOL 300 MG/ML 100ML VIAL. IART ONE (10:30)
[2019-07-13] MEDS ORDERED: HEPARIN for IV BOLUS 10,000 UNIT/10 ML VIAL. IART ONE (10:30)
[2019-07-13] MEDS ORDERED: VERAPAMIL 5 MG/2 ML VIAL. IART ONE (10:30)
[2019-07-13] MEDS ORDERED: TIROFIBAN 5MG -0.9% NS 100 ML IV ONE (10:36)
[2019-07-13] MEDS ORDERED: PRASUGREL 10 MG TABLET. ONE (10:55)
[2019-07-13] MEDS ORDERED: PRASUGREL 10 MG TABLET. PO ONE (11:00)
[2019-07-13] MEDS ORDERED: TIROFIBAN 5MG -0.9% NS 100 ML IV PRN (11:00)
[2019-07-13] MEDS: ACETAMINOPHEN 500 MG TABLET PO PRN ×2 (12:02→19:23)
--- NOTE | 2019-07-13 14:56 | NUR ---
SS following for discharge planning. SS reviewed pt chart. Pt is self pay pt. HCFS following for self pay status. Pt is from home and is currently on room air. SS will continue to follow for discharge planning.
--- NOTE | 2019-07-13 15:43 | NUR ---
Patient came back from his stent placement around 1100. They went in the right wrist which has an arm board in place with an air band with 10cc. Protocol followed on air removal in air band and air band removal. Air was removed as well as the band without any complications noted. Bandage applied over area and arm board still in place. Constant reminders given to the patient on not using his right arm due to bleeding risk. No concerns post stent at this time. Will continue to monitor.
[2019-07-13] MEDS ORDERED: DEXTROSE 50% 25 GM / 50ML DISP.SYRIN. IV PRN (16:45)
[2019-07-13] MEDS ORDERED: IV DEXTROSE 5% 250 ML BAG. IV PRN (16:45)
[2019-07-13] MEDS: INSULIN LISPRO 300 UNITS/3 ML VIAL. SQ SCH (17:19)
--- NOTE | 2019-07-13 17:30 | CARD ---
MR#: [id number] Date of Study: 07/13/2019 Ordering Physician: NABILA LEGGETT, Referring Physician: NABILA LEGGETT, Tech: Kathleen Martin APPROVED REPORT EXAM: Two-dimensional and M-mode echocardiogram with Doppler and color Doppler. Other Information Quality : AverageHR: 80bpm INDICATION Non STEMI RISK FACTORS Hypertension Hyperlipidemia Diabetes Smoking 2D DIMENSIONS RVDd2.9 (2.9-3.5cm)Left Atrium(2D)3.2 (1.6-4.0cm) IVSd1.1 (0.7-1.1cm)Aortic Root(2D)3.0 (2.0-3.7cm) LVDd4.0 (3.9-5.9cm)LVOT Diameter2.0 (1.8-2.4cm) PWd1.0 (0.7-1.1cm)LVDs2.6 (2.5-4.0cm) FS (%) 34.8 %SV44.5 ml Aortic Valve AoV Peak Rodolfo.140.5cm/sAoV VTI17.0cm AO Peak GR.7.9mmHgLVOT VTI 16.40cm AO Mean GR.3mmHg Mitral Valve MV E Dijljtqv66.3cm/sMV DECEL [id number] MV A Wlyzuvff58.8cm/sE/A Ratio1.3 TDI Lateral E' P. V9.91cm/sMedial E' P. V5.66cm/s E/Lateral E'7.8E/Medial E'13.7 Tricuspid Valve TR P. Jtmehtph298vq/sRAP BAIFFBPK9ldKg TR Peak Gr.78biPtKTEZ03wlMe Pulmonary Vein S1 Zkbtckyw82.2cm/sS2 Lihyhhvc24.82cm/s D2 Ozzndbba36.8cm/sPVa ulubagae560nzbl LEFT VENTRICLE The left ventricle is normal size. There is mild concentric left ventricular hypertrophy. The left ve ntricular ejection fraction is within normal range. The Ejection Fraction is 55% with mild apical hyp okenisis. There is mild apical hypokinesis. Transmitral Doppler flow pattern is Grade II-pseudonormal filling dynamics. RIGHT VENTRICLE The right ventricle is normal size. There is normal right ventricular wall thickness. The right ventr icular systolic function is normal. ATRIA The left atrium size is normal. The right atrium size is normal. The interatrial septum is intact wit h no evidence for an atrial septal defect or patent foramen ovale as noted on 2-D or Doppler imaging. AORTIC VALVE The aortic valve is normal in structure and function. Doppler and Color Flow revealed no significant aortic regurgitation. There is no significant aortic valvular stenosis. MITRAL VALVE The mitral valve is normal in structure and function. There is no evidence of mitral valve prolapse. There is no mitral valve stenosis. Doppler and Color Flow revealed no mitral valve regurgitation note d. TRICUSPID VALVE The tricuspid valve is normal in structure and function. Doppler and Color Flow revealed trace tricus pid regurgitation with an estimated PAP of 33 mmHg. There is no tricuspid valve stenosis. PULMONIC VALVE The pulmonic valve is not well visualized. Doppler and Color Flow revealed no pulmonic valvular regur gitation. GREAT VESSELS The aortic root is normal in size. The IVC is normal in size and collapses >50% with inspiration. PERICARDIAL EFFUSION There is no evidence of significant pericardial effusion. Critical Notification Critical Value: No <Conclusion> The left ventricle is normal size. The left ventricular ejection fraction is within normal range. The Ejection Fraction is 55% with mild apical hypokenisis. There is mild concentric left ventricular hypertrophy. Doppler and Color Flow revealed no significant aortic regurgitation. There is no significant aortic valvular stenosis. Doppler and Color Flow revealed no mitral valve regurgitation noted. Doppler and Color Flow revealed trace tricuspid regurgitation with an estimated PAP of 33 mmHg. Signed by : Raghav Jeffries MD Electronically Approved : 07/13/2019 17:29:40
--- NOTE | 2019-07-13 18:51 | CARD ---
MR#: [id number] Date of Study: 07/13/2019 Ordering Physician: NABILA LEGGETT, Referring Physician: NABILA LEGGETT, Tech: GUDELIA Pelletier (Tiffany) APPROVED REPORT Technologist: GUDELIA Izquierdo) Nurse: Damari Heath R.N. Procedure(s) performed: FLOURO TIME: 6.1MIN DOSE: 110.9 Gycm2 CONTRAST: 85 OMNI SEDATION TIME: 41MIN LHC, Coronary angiography PCI of the LAD HISTORY The patient is a 43 year-old male with a history of : diabetes mellitus with treatment, tobacco histo ry() , hypertension, dyslipidemia. INDICATION The indication(s) include : non-STEMI . CS Clinical Frailty Scale [facility] Clinical Frailty Scale: Managing Well Heart Failure Heart Failure: Yes If Yes, Newly Diagnosed: Yes If Yes, HF Type: Diastolic If Yes, NYHA Class: Class III PROCEDURE NARRATIVE INFORMED CONSENT: After explaining the risks and benefits of the procedure and alternatives, informed consent was obtained. The patient was brought electively to the cardiac catheterization lab. A timeout was performed confi rming the patient's name, date of , procedure, and site of procedure. All necessary personnel w ere wearing the appropriate protective equipment and radiation monitor devices. (See nursing notes for medications administered). ACCESS: The right wrist was sterilely prepped and draped in the usual fashion. The right wrist was infiltrat ed with 1 mL of 2% lidocaine for subcutaneous anesthesia. A 6 M[place]ese Terumo glide sheath was inserte d into the right radial artery without difficulty. CORONARY ANGIOGRAPHY: Right and left coronary angiography was performed using a 6Fr TIG 4.0 catheter. Left ventricular en d diastolic pressure was obtained with a TIG catheter and pullback was performed. All catheter excha nges and advancements were performed over a guidewire. FINDINGS: HEMODYNAMICS: LVEDP 10 mm Hg No gradient on LV to aortic pullback. AO: 128/78 LEFT VENTRICULOGRAM: Deferred due to known EF of 50% by echo. CORONARY ANGIOGRAPHY: LM is a large caliber vessel with normal angiographic appearance. LAD is a large caliber vessel with a mid 95% stenosis. D1 is a moderate caliber vessel with normal angiographic apeparance. LCx is a moderate caliber non-dominant vessel with mild luminal irregularities. OM1 is a moderate caliber vessel with proximal to mid 30% stenosis. RCA is a large caliber dominant vessel with normal angiographic appearance. INTERVENTIONAL TECHNIQUE: PCI OF THE LAD Based upon the presenting symptoms, angiographic findings and elevated biomarkers A intervention was planned on the LAD. Heparin and tirofiban were used for anticoagulation. Through a 6 Maltese EBU 3.0 g uide catheter a 0.014 inch pro-water wire was advanced to the distal LAD. Next, balloon angioplasty w as performed with a 3.0 x 8 mm balloon and the lesion was stented with a 3.5 x 12 mm drug-eluting margarito nt. Final angiography revealed excellent stent expansion with DONG-3 flow and no evidence of guide or wire related complications. The patient received a loading dose of Effient at case completion. DONG Flow DONG Flow (Pre-Intervention): DONG-3 DONG Flow (Post-Intervention): DONG-3 Conclusion 1. One vessel CAD involving the LAD. 2. Successful PCI of the LAD with implantation of a 3.5/12 mm FERNANDO. Recommendations ASA 81mg daily Prasugrel 10mg daily Cardiac rehab referral if affordable. High dose statin therapy. Signed by : Jean Kenney, Electronically Approved : 07/13/2019 18:50:47
[2019-07-13] MEDS ORDERED: fentaNYL PF VIAL 100 MCG/2 ML VIAL IV PRN (20:00)
[2019-07-13] MEDS ORDERED: 0.9 % SODIUM CHLORIDE 10 ML DISP.SYRIN. IV PRN (20:00)
[2019-07-13] MEDS ORDERED: LIDOCAINE 2% 100 MG/5 ML SYRINGE. IV PRN (20:00)
[2019-07-13] MEDS ORDERED: ATROPINE 0.5 MG/5 ML DISP.SYRINGE. IV PRN (20:00)
[2019-07-13] MEDS ORDERED: AMIODARONE 150 MG in IV DEXTROSE 5% 100ML 100 ML IV PRN (20:00)
[2019-07-13] MEDS ORDERED: ATORVASTATIN CALCIUM 20 MG TABLET PO SCH (21:00)
[2019-07-13] MEDS ORDERED: tiZANidine 4 MG TABLET. PO ONE (23:00)
[2019-07-13] MEDS ORDERED: GABAPENTIN 300 MG CAPSULE. PO ONE (23:00)
[2019-07-14 03:00] VITALS: BP 114/79
[2019-07-14 04:08] LABS: HEMOGLOBIN A1C 10.7 % (4.8-5.6)
[2019-07-14] MEDS ORDERED: PRASUGREL 10 MG TABLET. PO SCH (08:00)
[2019-07-14] MEDS ORDERED: ASPIRIN ENTERIC COATED 81 MG TABLET.DR. PO SCH (08:00)
[2019-07-14 08:21] LABS: BASO % 1 % (0-3); EOS # 0.2 x10^3/uL (0.0-0.7); EOS % 4 % (0-3); HEMATOCRIT 47.4 % (39.0-53.0); HEMOGLOBIN 16.2 g/dL (13.0-17.5); LYMPH # 1.5 x10^3/uL (1.0-4.8); LYMPH % 25 % (24-48); MEAN CORPUSCULAR HEMOGLOBIN 33 pg (25-35); MEAN CORPUSCULAR HGB CONC 34 g/dL (31-37); MEAN CORPUSCULAR VOLUME 96 fL (79-100); MONO # 0.4 x10^3/uL (0.0-1.1); MONO % 7 % (0-9); NEUT # 3.8 x10^3/uL (1.8-7.7); NEUT % 63 % (31-73); PLATELET COUNT 173 x10^3/uL (140-400); RED BLOOD COUNT 4.93 x10^6/uL (4.30-5.70); WHITE BLOOD COUNT 6.1 x10^3/uL (4.0-11.0)
[2019-07-14 08:29] VITALS: BP 116/81
[2019-07-14] MEDS: GABAPENTIN 300 MG CAPSULE. PO SCH ×2 (08:52→14:00)
[2019-07-14] MEDS: INSULIN LISPRO 300 UNITS/3 ML VIAL. SQ SCH ×2 (08:59→12:55)
[2019-07-14 09:08] LABS: ALBUMIN 2.9 g/dL (3.4-5.0); ALBUMIN/GLOBULIN RATIO 0.8 (1.0-1.7); CALCIUM 8.7 mg/dL (8.5-10.1); CREATININE 1.1 mg/dL (0.7-1.3); GFR 72.7; POTASSIUM 4.1 mmol/L (3.5-5.1); TOTAL BILIRUBIN 0.6 mg/dL (0.2-1.0); TOTAL PROTEIN 6.6 g/dL (6.4-8.2)
[2019-07-14] MEDS ORDERED: IPRATRPIUM/ALBUTEROL 0.5/2.5MG 3 ML NEBU. NEB ONE (10:00)
[2019-07-14 11:35] VITALS: BP 120/82
--- NOTE | 2019-07-14 12:26 | PDOC ---
PROGRESS NOTES Chief Complaint Chief Complaint 1. NSTEMI - LAD stenois ss.p PCI 07/13/2019 (also s.p heparin gtt on admissioN) 2. SMOKER 3. DM 2 hgba1c 10, on OHA + insulin 4. CKD on rachel inhib (lisinopril) 5. NO HTN History of Present Illness History of Present Illness LAD stenosis s.p PCI . On phone, no cp VS ok, not on any gtts no arrhythmias post PCI PLAn: CAD meds Ok to t,o to [facility] floor, out of [facility] CArdiac diet Smoking etc cessation Will need new rx on dc Vitals Vitals Vital Signs Date Time Temp Pulse Resp B/P (MAP) Pulse Ox O2 Delivery O2 Flow Rate FiO2 07/14/19 12:14 95 Room Air 07/14/19 11:35 97.7 84 20 120/82 (95) 97.7 07/13/19 11:09 2.0 Physical Exam General: Alert, Oriented X3, Cooperative, No acute distress Heart: Regular rate (SR), Normal S1, Normal S2, No murmurs Abdomen: Soft, No tenderness Extremities: No cyanosis, No edema Skin: No breakdown, No significant lesion Labs LABS Laboratory Tests Test 07/13/19 16:03 07/14/19 07:35 07/14/19 08:34 Glucose (Fingerstick) 222 mg/dL (70-99) 179 mg/dL (70-99) White Blood Count 6.1 x10^3/uL (4.0-11.0) Red Blood Count 4.93 x10^6/uL (4.30-5.70) Hemoglobin 16.2 g/dL (13.0-17.5) Hematocrit 47.4 % (39.0-53.0) Mean Corpuscular Volume 96 fL (79-100) Mean Corpuscular Hemoglobin 33 pg (25-35) Mean Corpuscular Hemoglobin Concent 34 g/dL (31-37) Red Cell Distribution Width 13.0 % (11.5-14.5) Platelet Count 173 x10^3/uL (140-400) Neutrophils (%) (Auto) 63 % (31-73) Lymphocytes (%) (Auto) 25 % (24-48) Monocytes (%) (Auto) 7 % (0-9) Eosinophils (%) (Auto) 4 % (0-3) Basophils (%) (Auto) 1 % (0-3) Neutrophils # (Auto) 3.8 x10^3/uL (1.8-7.7) Lymphocytes # (Auto) 1.5 x10^3/uL (1.0-4.8) Monocytes # (Auto) 0.4 x10^3/uL (0.0-1.1) Eosinophils # (Auto) 0.2 x10^3/uL (0.0-0.7) Basophils # (Auto) 0.0 x10^3/uL (0.0-0.2) Sodium Level 138 mmol/L (136-145) Potassium Level 4.1 mmol/L (3.5-5.1) Chloride Level 104 mmol/L (98-107) Carbon Dioxide Level 25 mmol/L (21-32) Anion Gap 9 (6-14) Blood Urea Nitrogen 16 mg/dL (8-26) Creatinine 1.1 mg/dL (0.7-1.3) Estimated GFR (Cockcroft-Gault) 72.7 BUN/Creatinine Ratio 15 (6-20) Glucose Level 201 mg/dL (70-99) Calcium Level 8.7 mg/dL (8.5-10.1) Total Bilirubin 0.6 mg/dL (0.2-1.0) Aspartate Amino Transf (AST/SGOT) 39 U/L (15-37) Alanine Aminotransferase (ALT/SGPT) 17 U/L (16-63) Alkaline Phosphatase 70 U/L (46-116) Total Protein 6.6 g/dL (6.4-8.2) Albumin 2.9 g/dL (3.4-5.0) Albumin/Globulin Ratio 0.8 (1.0-1.7) Review of Systems Review of Systems neg 14 pt reviewed with him Comment Review of Relevant I have reviewed the following items jaycee (where applicable) has been applied. Labs Laboratory Tests Test 07/13/19 04:40 07/13/19 04:47 07/13/19 04:52 07/13/19 06:24 White Blood Count 10.0 x10^3/uL (4.0-11.0) Red Blood Count 5.53 x10^6/uL (4.30-5.70) Hemoglobin 18.3 g/dL (13.0-17.5) Hematocrit 52.6 % (39.0-53.0) Mean Corpuscular Volume 95 fL (79-100) Mean Corpuscular Hemoglobin 33 pg (25-35) Mean Corpuscular Hemoglobin Concent 35 g/dL (31-37) Red Cell Distribution Width 13.1 % (11.5-14.5) Platelet Count 217 x10^3/uL (140-400) Neutrophils (%) (Auto) 47 % (31-73) Lymphocytes (%) (Auto) 40 % (24-48) Monocytes (%) (Auto) 7 % (0-9) Eosinophils (%) (Auto) 5 % (0-3) Basophils (%) (Auto) 1 % (0-3) Neutrophils # (Auto) 4.7 x10^3/uL (1.8-7.7) Lymphocytes # (Auto) 4.1 x10^3/uL (1.0-4.8) Monocytes # (Auto) 0.7 x10^3/uL (0.0-1.1) Eosinophils # (Auto) 0.5 x10^3/uL (0.0-0.7) Basophils # (Auto) 0.1 x10^3/uL (0.0-0.2) Sodium Level 133 mmol/L (136-145) Potassium Level 4.0 mmol/L (3.5-5.1) Chloride Level 100 mmol/L (98-107) Carbon Dioxide Level 27 mmol/L (21-32) Anion Gap 6 (6-14) 14 mmol/L (6-14) Blood Urea Nitrogen 16 mg/dL (8-26) Creatinine 1.2 mg/dL (0.7-1.3) Estimated GFR (Cockcroft-Gault) 65.8 BUN/Creatinine Ratio 13 (6-20) Glucose Level 223 mg/dL (70-99) 214 mg/dL (70-99) Calcium Level 8.9 mg/dL (8.5-10.1) Magnesium Level 2.1 mg/dL (1.8-2.4) Total Bilirubin 0.4 mg/dL (0.2-1.0) Aspartate Amino Transf (AST/SGOT) 19 U/L (15-37) Alanine Aminotransferase (ALT/SGPT) 22 U/L (16-63) Alkaline Phosphatase 92 U/L (46-116) Troponin I Quantitative 0.165 ng/mL (0.000-0.055) ZP-[id number]-I-Type Natriuretic Peptide 52 pg/mL (0-124) Total Protein 7.2 g/dL (6.4-8.2) Albumin 3.3 g/dL (3.4-5.0) Albumin/Globulin Ratio 0.8 (1.0-1.7) Bedside Troponin I 0.07 ng/ml (<0.08) Bedside Hemoglobin 18.4 g/dL (14-18) Bedside Hematocrit 54 % (37-52) Bedside Sodium 136 mmol/L (135-145) Bedside Potassium 3.8 mmol/L (3.5-5.0) Bedside Chloride 100 mmol/L (98-110) Bedside Total CO2 27 mmol/L (23-32) Bedside Blood Urea Nitrogen 16 mg/dL (8-26) Bedside Creatinine 1.2 mg/dL (0.5-1.4) Bedside Ionized Calcium (Mike) 1.17 mmol/L (1.13-1.32) Glucose (Fingerstick) 208 mg/dL (70-99) Test 07/13/19 08:40 07/13/19 10:37 07/13/19 12:17 07/13/19 16:03 Hemoglobin A1c 10.7 % (4.8-5.6) Troponin I Quantitative 3.214 ng/mL (0.000-0.055) 10.015 ng/mL (0.000-0.055) Triglycerides Level 186 mg/dL (0-150) Cholesterol Level 161 mg/dL (0-200) LDL Cholesterol, Calculated 91 mg/dL (0-100) VLDL Cholesterol, Calculated 37 mg/dL (0-40) Non-HDL Cholesterol Calculated 128 mg/dL (0-129) HDL Cholesterol 33 mg/dL (40-60) Cholesterol/HDL Ratio 4.9 Thyroid Stimulating Hormone (TSH) 22.177 uIU/mL (0.358-3.74) Activated Clotting Time 183 sec (92-181) Glucose (Fingerstick) 222 mg/dL (70-99) Test 07/14/19 07:35 07/14/19 08:34 White Blood Count 6.1 x10^3/uL (4.0-11.0) Red Blood Count 4.93 x10^6/uL (4.30-5.70) Hemoglobin 16.2 g/dL (13.0-17.5) Hematocrit 47.4 % (39.0-53.0) Mean Corpuscular Volume 96 fL (79-100) Mean Corpuscular Hemoglobin 33 pg (25-35) Mean Corpuscular Hemoglobin Concent 34 g/dL (31-37) Red Cell Distribution Width 13.0 % (11.5-14.5) Platelet Count 173 x10^3/uL (140-400) Neutrophils (%) (Auto) 63 % (31-73) Lymphocytes (%) (Auto) 25 % (24-48) Monocytes (%) (Auto) 7 % (0-9) Eosinophils (%) (Auto) 4 % (0-3) Basophils (%) (Auto) 1 % (0-3) Neutrophils # (Auto) 3.8 x10^3/uL (1.8-7.7) Lymphocytes # (Auto) 1.5 x10^3/uL (1.0-4.8) Monocytes # (Auto) 0.4 x10^3/uL (0.0-1.1) Eosinophils # (Auto) 0.2 x10^3/uL (0.0-0.7) Basophils # (Auto) 0.0 x10^3/uL (0.0-0.2) Sodium Level 138 mmol/L (136-145) Potassium Level 4.1 mmol/L (3.5-5.1) Chloride Level 104 mmol/L (98-107) Carbon Dioxide Level 25 mmol/L (21-32) Anion Gap 9 (6-14) Blood Urea Nitrogen 16 mg/dL (8-26) Creatinine 1.1 mg/dL (0.7-1.3) Estimated GFR (Cockcroft-Gault) 72.7 BUN/Creatinine Ratio 15 (6-20) Glucose Level 201 mg/dL (70-99) Calcium Level 8.7 mg/dL (8.5-10.1) Total Bilirubin 0.6 mg/dL (0.2-1.0) Aspartate Amino Transf (AST/SGOT) 39 U/L (15-37) Alanine Aminotransferase (ALT/SGPT) 17 U/L (16-63) Alkaline Phosphatase 70 U/L (46-116) Total Protein 6.6 g/dL (6.4-8.2) Albumin 2.9 g/dL (3.4-5.0) Albumin/Globulin Ratio 0.8 (1.0-1.7) Glucose (Fingerstick) 179 mg/dL (70-99) Laboratory Tests Test 07/13/19 16:03 07/14/19 07:35 07/14/19 08:34 Glucose (Fingerstick) 222 mg/dL (70-99) 179 mg/dL (70-99) White Blood Count 6.1 x10^3/uL (4.0-11.0) Red Blood Count 4.93 x10^6/uL (4.30-5.70) Hemoglobin 16.2 g/dL (13.0-17.5) Hematocrit 47.4 % (39.0-53.0) Mean Corpuscular Volume 96 fL (79-100) Mean Corpuscular Hemoglobin 33 pg (25-35) Mean Corpuscular Hemoglobin Concent 34 g/dL (31-37) Red Cell Distribution Width 13.0 % (11.5-14.5) Platelet Count 173 x10^3/uL (140-400) Neutrophils (%) (Auto) 63 % (31-73) Lymphocytes (%) (Auto) 25 % (24-48) Monocytes (%) (Auto) 7 % (0-9) Eosinophils (%) (Auto) 4 % (0-3) Basophils (%) (Auto) 1 % (0-3) Neutrophils # (Auto) 3.8 x10^3/uL (1.8-7.7) Lymphocytes # (Auto) 1.5 x10^3/uL (1.0-4.8) Monocytes # (Auto) 0.4 x10^3/uL (0.0-1.1) Eosinophils # (Auto) 0.2 x10^3/uL (0.0-0.7) Basophils # (Auto) 0.0 x10^3/uL (0.0-0.2) Sodium Level 138 mmol/L (136-145) Potassium Level 4.1 mmol/L (3.5-5.1) Chloride Level 104 mmol/L (98-107) Carbon Dioxide Level 25 mmol/L (21-32) Anion Gap 9 (6-14) Blood Urea Nitrogen 16 mg/dL (8-26) Creatinine 1.1 mg/dL (0.7-1.3) Estimated GFR (Cockcroft-Gault) 72.7 BUN/Creatinine Ratio 15 (6-20) Glucose Level 201 mg/dL (70-99) Calcium Level 8.7 mg/dL (8.5-10.1) Total Bilirubin 0.6 mg/dL (0.2-1.0) Aspartate Amino Transf (AST/SGOT) 39 U/L (15-37) Alanine Aminotransferase (ALT/SGPT) 17 U/L (16-63) Alkaline Phosphatase 70 U/L (46-116) Total Protein 6.6 g/dL (6.4-8.2) Albumin 2.9 g/dL (3.4-5.0) Albumin/Globulin Ratio 0.8 (1.0-1.7) Medications Current Medications Aspirin (Children'S Aspirin) 324 mg 1X ONCE PO Last administered on 07/13/19at 04:48; Start 07/13/19 at 05:00; Stop 07/13/19 at 05:01; Status DC Nitroglycerin (Nitrostat) 0.4 mg PRN Q5MIN PRN SL CHEST PAIN Last administered on 07/13/19at 04:49; Start 07/13/19 at 04:45; Stop 07/13/19 at 05:46; Status DC Nitroglycerin (Nitro-Bid Oint) 1 inch STK-MED ONCE .ROUTE ; Start 07/13/19 at 04:58; Stop 07/13/19 at 04:59; Status DC Heparin Sodium (Porcine) (Heparin Sodium) 4,000 unit 1X ONCE IV Last adm inistered on 07/13/19at 05:21; Start 07/13/19 at 05:30; Stop 07/13/19 at 05:31; Status DC Heparin Sodium/ Dextrose 250 ml @ 0 mls/hr CONT PRN IV PER PROTOCOL Last administered on 07/13/19at 05:25; Start 07/13/19 at 05:15; Stop 07/14/19 at 10:17; Status DC Heparin Sodium (Porcine) (Heparin Sodium) 2,200 unit PRN Q6HRS PRN IV FOR UFH LEVEL LESS THAN 0.2; Start 07/13/19 at 05:15; Stop 07/14/19 at 10:18; Status DC Info (Anti-Coagulation Monitoring By Pharmacy) 1 each PRN DAILY PRN MC SEE COMMENTS Last administered on 07/13/19at 06:17; Start 07/13/19 at 05:15; Stop 07/14/19 at 10:17; Status DC Ondansetron HCl (Zofran) 4 mg PRN Q8HRS PRN IV NAUSEA/VOMITING 1ST CHOICE; Start 07/13/19 at 05:45; Stop 07/13/19 at 07:20; Status DC Morphine Sulfate (Morphine Sulfate) 2 mg PRN Q2HR PRN IV SEVERE PAIN 7-10 Last administered on 07/13/19at 07:38; Start 07/13/19 at 05:45; Stop 07/14/19 at 05:44; Status DC Acetaminophen (Tylenol) 650 mg PRN Q4HRS PRN PO FEVER; Start 07/13/19 at 05:45; Stop 07/13/19 at 07:20; Status DC Nitroglycerin (Nitrostat) 0.4 mg PRN Q5MIN PRN SL CHEST PAIN; Start 07/13/19 at 05:45; Stop 07/14/19 at 05:44; Status DC Acetaminophen (Tylenol) 500 mg PRN Q6HRS PRN PO MILD PAIN / TEMP; Start 07/13/19 at 07:30; Stop 07/13/19 at 09:25; Status DC Acetaminophen/ Codeine Phosphate (Tylenol #3) 1 tab PRN Q6HRS PRN PO MODERATE PAIN; Start 07/13/19 at 07:30 Ondansetron HCl (Zofran) 4 mg PRN Q6HRS PRN IVP NAUSEA/VOMITING; Start 07/13/19 at 07:30 Albuterol Sulfate (Ventolin Neb Soln) 2.5 mg PRN Q4HRS PRN NEB SHORTNESS OF BREATH Last administered on 07/13/19at 16:42; Start 07/13/19 at 07:30 Influenza Virus Vaccine Quadrival (Afluria Quad 2019-20 (3yr Up) Syringe) 0.5 ml ONCE ONCE VAX IM Last administered on 07/13/19at 15:15; Start 07/13/19 at 07:45; Stop 07/13/19 at 07:46; Status DC Sodium Chloride 1,000 ml @ 75 mls/hr 1X ONCE IV Last administered on 07/13/19at 11:00; Start 07/13/19 at 09:15; Stop 07/13/19 at 22:34; Status DC Acetaminophen (Tylenol) 500 mg PRN Q6HRS PRN PO MILD PAIN / TEMP Last administered on 07/13/19at 19:23; Start 07/13/19 at 09:30 Iohexol (Omnipaque 300 Mg/ml) 100 ml STK-MED ONCE .ROUTE ; Start 07/13/19 at 09:55; Stop 07/13/19 at 09:55; Status DC Lidocaine HCl (Xylocaine-Mpf 1% 2ml Vial) 2 ml STK-MED ONCE .ROUTE ; Start 07/13/19 at 09:55; Stop 07/13/19 at 09:56; Status DC Heparin Sodium/ Sodium Chloride 1,000 ml @ As Directed STK-MED ONCE .ROUTE ; Start 07/13/19 at 09:55; Stop 07/13/19 at 09:56; Status DC Fentanyl Citrate (Fentanyl 2ml Vial) 100 mcg STK-MED ONCE .ROUTE ; Start 07/13/19 at 10:07; Stop 07/13/19 at 10:08; Status DC Midazolam HCl (Versed) 2 mg STK-MED ONCE .ROUTE ; Start 07/13/19 at 10:07; Stop 07/13/19 at 10:08; Status DC Heparin Sodium (Porcine) (Heparin Sodium) 10,000 unit STK-MED ONCE .ROUTE ; Start 07/13/19 at 10:07; Stop 07/13/19 at 10:08; Status DC Verapamil HCl (Verapamil) 5 mg STK-MED ONCE .ROUTE ; Start 07/13/19 at 10:07; Stop 07/13/19 at 10:08; Status DC Nitroglycerin (Nitroglycerin) 200 mcg STK-MED ONCE .ROUTE ; Start 07/13/19 at 10:08; Stop 07/13/19 at 10:08; Status DC Nitroglycerin (Nitroglycerin) 200 mcg 1X ONCE IART Last administered on 07/13/19at 11:05; Start 07/13/19 at 10:30; Stop 07/13/19 at 10:36; Status DC Verapamil HCl (Verapamil) 2.5 mg 1X ONCE IART Last administered on 07/13/19at 11:07; Start 07/13/19 at 10:30; Stop 07/13/19 at 10:36; Status DC Heparin Sodium (Porcine) (Heparin Sodium) 2,500 unit 1X ONCE IART Last administered on 07/13/19at 11:06; Start 07/13/19 at 10:30; Stop 07/13/19 at 10:36; Status DC Heparin Sodium/ Sodium Chloride (HEPARIN for ARTERIAL LINE FLUSH) 1,000 unit 1X ONCE IART Last administered on 07/13/19at 11:05; Start 07/13/19 at 10:30; Stop 07/13/19 at 10:36; Status DC Midazolam HCl (Versed) 2 mg 1X ONCE IV Last administered on 07/13/19at 11:08; Start 07/13/19 at 10:30; Stop 07/13/19 at 10:36; Status DC Fentanyl Citrate (Fentanyl 2ml Vial) 100 mcg 1X ONCE IV Last administered on 07/13/19at 11:08; Start 07/13/19 at 10:30; Stop 07/13/19 at 10:37; Status DC Iohexol (Omnipaque 300 Mg/ml) 100 ml 1X ONCE IART Last administered on 07/13/19at 11:06; Start 07/13/19 at 10:30; Stop 07/13/19 at 10:36; Status DC Lidocaine HCl (Xylocaine-Mpf 1% 2ml Vial) 1 ml 1X ONCE INJ Last administered on 07/13/19at 11:07; Start 07/13/19 at 10:30; Stop 07/13/19 at 10:36; Status DC Tirofiban/Sodium Chloride 100 ml @ As Directed STK-MED ONCE IV ; Start 07/13/19 at 10:36; Stop 07/13/19 at 10:36; Status DC Heparin Sodium (Porcine) (Heparin Sodium) 3,000 unit 1X ONCE IV Last administered on 07/13/19at 11:06; Start 07/13/19 at 11:00; Stop 07/13/19 at 11:01; Status DC Tirofiban/Sodium Chloride 100 ml @ 16.002 mls/ hr CONT PRN IV PER PROTOCOL Last administered on 07/13/19at 10:40; Start 07/13/19 at 11:00; Stop 07/14/19 at 04:59; Status DC Prasugrel (Effient) 60 mg 1X ONCE PO Last administered on 07/13/19at 11:05; Start 07/13/19 at 11:00; Stop 07/13/19 at 11:01; Status DC Prasugrel (Effient) 10 mg STK-MED ONCE .ROUTE ; Start 07/13/19 at 10:55; Stop 07/13/19 at 10:55; Status DC Nitroglycerin (Nitroglycerin) 200 mcg STK-MED ONCE .ROUTE ; Start 07/13/19 at 10:55; Stop 07/13/19 at 10:55; Status DC Insulin Human Lispro (HumaLOG) 0-7 UNITS TIDWMEALS SQ Last administered on 07/14/19at 08:59; Start 07/13/19 at 17:00 Dextrose (Dextrose 50%-Water Syringe) 12.5 gm PRN Q15MIN PRN IV SEE COMMENTS; Start 07/13/19 at 16:45 Dextrose (Iv Dextrose 5%) 250 ml PRN Q15MIN PRN IV SEE COMMENTS; Start 07/13/19 at 16:45 Sodium Chloride (Normal Saline Flush) 3 ml QSHIFT PRN IV AFTER MEDS AND BLOOD DRAWS; Start 07/13/19 at 20:00 Aspirin (Ecotrin) 81 mg DAILYWBKFT PO Last administered on 07/14/19at 08:52; Start 07/14/19 at 08:00 Prasugrel (Effient) 10 mg DAILYWBKFT PO Last administered on 07/14/19at 08:51; Start 07/14/19 at 08:00 Atorvastatin Calcium (Lipitor) 20 mg QHS PO Last administered on 07/13/19at 22:41; Start 07/13/19 at 21:00 Acetaminophen (Tylenol) 650 mg PRN Q6HRS PRN PO MILD PAIN / TEMP; Start 07/13/19 at 20:00 Fentanyl Citrate (Fentanyl 2ml Vial) 50 mcg PRN Q1HR PRN IV MODERATE OR SEVERE PAIN; Start 07/13/19 at 20:00 Nitroglycerin (Nitrostat) 0.4 mg PRN Q5MIN PRN SL CHEST PAIN; Start 07/13/19 at 20:00 Amiodarone HCl 150 mg/Dextrose 103 ml @ 600 mls/hr 1X PRN PRN IV FOR VENTRICULAR TACHYCARDIA; Start 07/13/19 at 20:00 Lidocaine HCl (Lidocaine HCl 2% Abboject) 100 mg 1X PRN PRN IV FOR VENTRICULAR TACHYCARDIA; Start 07/13/19 at 20:00 Atropine Sulfate (ATROPINE 0.5mg SYRINGE) 0.5 mg PRN 1X PRN IV BRADYCARDIA; Start 07/13/19 at 20:00 Gabapentin (Neurontin) 300 mg TID PO Last administered on 07/14/19at 08:52; Start 07/14/19 at 09:00 Gabapentin (Neurontin) 300 mg 1X ONCE PO Last administered on 07/13/19at 22:41; Start 07/13/19 at 23:00; Stop 07/13/19 at 23:01; Status DC Tizanidine HCl (Zanaflex) 8 mg HS PO ; Start 07/14/19 at 21:00 Tizanidine HCl (Zanaflex) 8 mg 1X ONCE PO Last administered on 07/13/19at 22:41; Start 07/13/19 at 23:00; Stop 07/13/19 at 23:01; Status DC Albuterol/ Ipratropium (Duoneb) 3 ml 1X ONCE NEB Last administered on 07/14/19at 12:14; Start 07/14/19 at 10:00; Stop 07/14/19 at 10:04; Status DC Active Scripts Active Proair Hfa Inhaler (Albuterol Sulfate) 8.5 Gm Hfa.aer.ad 2 Puff IH PRN Q4-6HRS PRN 21 Days Reported Combivent Respimat Inhal (Ipratropium/Albuterol Sulfate) 4 Gm Aer.w.adap 2 Inh IH QID Synthroid (Levothyroxine Sodium) 100 Mcg Tablet 100 Mcg PO DAILYAC Gabapentin (Gabapentin) 300 Mg Capsule 300 Mg PO TID Aspirin 81 Mg Tab.chew 81 Mg PO DAILY Tizanidine Hcl 4 Mg Tablet 8 Mg PO QHS Lantus Solostar (Insulin Glargine,Hum.rec.anlog) 100 Unit/1 Ml Insuln.pen 20 Unit SQ QHS Lantus Solostar (Insulin Glargine,Hum.rec.anlog) 100 Unit/1 Ml Insuln.pen 40 Unit SQ DAILY Lisinopril 20 Mg Tablet 20 Mg PO DAILY Atorvastatin Calcium 40 Mg Tablet 40 Mg PO HS Januvia (Sitagliptin Phosphate) 50 Mg Tablet 50 Mg PO QHS Invokana (Canagliflozin) 300 Mg Tablet 300 Mg PO DAILY Vitals/I & O Vital Sign - Last 24 Hours 07/13/19 07/13/19 07/13/19 07/13/19 12:30 12:45 13:00 13:15 Temp 98.0 98.0 98.0 98.0 98.0 98.0 98.0 98.0 Pulse 78 82 78 84 Resp 18 18 18 18 B/P (MAP) 112/68 (83) 131/78 (95) 97/59 (72) 105/69 (81) Pulse Ox 96 96 97 97 O2 Delivery Room Air Room Air Room Air Room Air 07/13/19 07/13/19 07/13/19 07/13/19 13:30 13:45 14:00 14:55 Temp 98.0 98.2 98.2 98.2 98.0 98.2 98.2 98.2 Pulse 80 96 90 88 Resp 18 18 18 B/P (MAP) 120/86 (97) 134/82 (99) 111/69 (83) 102/57 (72) Pulse Ox 97 97 97 97 O2 Delivery Room Air Room Air Room Air Room Air 07/13/19 07/13/19 07/13/19 07/13/19 15:25 16:00 16:42 16:58 Temp 98.2 98.1 98.2 98.1 Pulse 90 86 Resp 18 20 B/P (MAP) 110/90 (97) 124/76 (92) Pulse Ox 97 97 97 O2 Delivery Room Air Room Air Room Air Room Air 07/13/19 07/13/19 07/13/19 07/13/19 17:44 18:33 19:00 19:35 Temp 98.1 98.1 98.4 98.1 98.1 98.4 Pulse 84 92 99 Resp 18 20 16 B/P (MAP) 152/76 (101) 125/79 (94) 121/85 (97) Pulse Ox 98 98 97 O2 Delivery Room Air Room Air Room Air Room Air 07/13/19 07/14/19 07/14/19 07/14/19 22:59 03:00 08:00 08:29 Temp 98.1 98.1 98.3 98.1 98.1 98.3 Pulse 81 70 99 Resp 18 16 20 B/P (MAP) 145/77 (99) 114/79 (91) 116/81 (93) Pulse Ox 98 97 97 O2 Delivery Room Air Room Air Room Air Room Air 07/14/19 07/14/19 11:35 12:14 Temp 97.7 97.7 Pulse 84 Resp 20 B/P (MAP) 120/82 (95) Pulse Ox 97 95 O2 Delivery Room Air Room Air Intake and Output 07/13/19 07/13/19 07/14/19 14:59 22:59 06:59 Intake Total 0 ml 1950 ml Output Total 800 ml 2250 ml 3150 ml Balance -800 ml -2250 ml -1200 ml BHARAT QUICK MD Jul 14, 2019 12:26
[2019-07-14] MEDS ORDERED: NITR0.4T24 SL (12:42)
[2019-07-14] MEDS ORDERED: PRAS10TA9 PO (12:42)
--- NOTE | 2019-07-14 12:46 | PDOC3 ---
Discharge Summary Visit Information Date of Admission: Jul 13, 2019 Date of Discharge: Jul 14, 2019 Admitting Diagnosis Comment: 1. NSTEMI - LAD stenois ss.p PCI 07/13/2019 (also s.p heparin gtt on admissioN) 2. SMOKER 3. DM 2 hgba1c 10, on OHA + insulin 4. CKD on rachel inhib (lisinopril) 5. NO HTN Brief Hospital Course Allergies Allergies Coded Allergies Type Severity Reaction Last Updated Verified Penicillins Allergy Severe RASH 07/06/19 Yes sulfamethoxazole Allergy Severe MEGAN [place] SYNDROME 07/06/19 Yes trimethoprim Allergy Severe MEGAN [place] SYNDROME 07/06/19 Yes vancomycin Allergy Severe MARIE SKIN 07/06/19 Yes Vital Signs Vital Signs Date Time Temp Pulse Resp B/P (MAP) Pulse Ox O2 Delivery O2 Flow Rate FiO2 07/14/19 12:14 95 Room Air 07/14/19 11:35 97.7 84 20 120/82 (95) 97.7 07/13/19 11:09 2.0 Lab Results Laboratory Tests Test 07/13/19 04:40 07/13/19 04:47 07/13/19 04:52 07/13/19 06:24 White Blood Count 10.0 x10^3/uL (4.0-11.0) Red Blood Count 5.53 x10^6/uL (4.30-5.70) Hemoglobin 18.3 g/dL (13.0-17.5) Hematocrit 52.6 % (39.0-53.0) Mean Corpuscular Volume 95 fL (79-100) Mean Corpuscular Hemoglobin 33 pg (25-35) Mean Corpuscular Hemoglobin Concent 35 g/dL (31-37) Red Cell Distribution Width 13.1 % (11.5-14.5) Platelet Count 217 x10^3/uL (140-400) Neutrophils (%) (Auto) 47 % (31-73) Lymphocytes (%) (Auto) 40 % (24-48) Monocytes (%) (Auto) 7 % (0-9) Eosinophils (%) (Auto) 5 % (0-3) Basophils (%) (Auto) 1 % (0-3) Neutrophils # (Auto) 4.7 x10^3/uL (1.8-7.7) Lymphocytes # (Auto) 4.1 x10^3/uL (1.0-4.8) Monocytes # (Auto) 0.7 x10^3/uL (0.0-1.1) Eosinophils # (Auto) 0.5 x10^3/uL (0.0-0.7) Basophils # (Auto) 0.1 x10^3/uL (0.0-0.2) Sodium Level 133 mmol/L (136-145) Potassium Level 4.0 mmol/L (3.5-5.1) Chloride Level 100 mmol/L (98-107) Carbon Dioxide Level 27 mmol/L (21-32) Anion Gap 6 (6-14) 14 mmol/L (6-14) Blood Urea Nitrogen 16 mg/dL (8-26) Creatinine 1.2 mg/dL (0.7-1.3) Estimated GFR (Cockcroft-Gault) 65.8 BUN/Creatinine Ratio 13 (6-20) Glucose Level 223 mg/dL (70-99) 214 mg/dL (70-99) Calcium Level 8.9 mg/dL (8.5-10.1) Magnesium Level 2.1 mg/dL (1.8-2.4) Total Bilirubin 0.4 mg/dL (0.2-1.0) Aspartate Amino Transf (AST/SGOT) 19 U/L (15-37) Alanine Aminotransferase (ALT/SGPT) 22 U/L (16-63) Alkaline Phosphatase 92 U/L (46-116) Troponin I Quantitative 0.165 ng/mL (0.000-0.055) IW-Hvs-R-Type Natriuretic Peptide 52 pg/mL (0-124) Total Protein 7.2 g/dL (6.4-8.2) Albumin 3.3 g/dL (3.4-5.0) Albumin/Globulin Ratio 0.8 (1.0-1.7) Bedside Troponin I 0.07 ng/ml (<0.08) Bedside Hemoglobin 18.4 g/dL (14-18) Bedside Hematocrit 54 % (37-52) Bedside Sodium 136 mmol/L (135-145) Bedside Potassium 3.8 mmol/L (3.5-5.0) Bedside Chloride 100 mmol/L (98-110) Bedside Total CO2 27 mmol/L (23-32) Bedside Blood Urea Nitrogen 16 mg/dL (8-26) Bedside Creatinine 1.2 mg/dL (0.5-1.4) Bedside Ionized Calcium (Mike) 1.17 mmol/L (1.13-1.32) Glucose (Fingerstick) 208 mg/dL (70-99) Test 07/13/19 08:40 07/13/19 10:37 07/13/19 12:17 07/13/19 16:03 Hemoglobin A1c 10.7 % (4.8-5.6) Troponin I Quantitative 3.214 ng/mL (0.000-0.055) 10.015 ng/mL (0.000-0.055) Triglycerides Level 186 mg/dL (0-150) Cholesterol Level 161 mg/dL (0-200) LDL Cholesterol, Calculated 91 mg/dL (0-100) VLDL Cholesterol, Calculated 37 mg/dL (0-40) Non-HDL Cholesterol Calculated 128 mg/dL (0-129) HDL Cholesterol 33 mg/dL (40-60) Cholesterol/HDL Ratio 4.9 Thyroid Stimulating Hormone (TSH) 22.177 uIU/mL (0.358-3.74) Activated Clotting Time 183 sec (92-181) Glucose (Fingerstick) 222 mg/dL (70-99) Test 07/14/19 07:35 07/14/19 08:34 07/14/19 12:25 White Blood Count 6.1 x10^3/uL (4.0-11.0) Red Blood Count 4.93 x10^6/uL (4.30-5.70) Hemoglobin 16.2 g/dL (13.0-17.5) Hematocrit 47.4 % (39.0-53.0) Mean Corpuscular Volume 96 fL (79-100) Mean Corpuscular Hemoglobin 33 pg (25-35) Mean Corpuscular Hemoglobin Concent 34 g/dL (31-37) Red Cell Distribution Width 13.0 % (11.5-14.5) Platelet Count 173 x10^3/uL (140-400) Neutrophils (%) (Auto) 63 % (31-73) Lymphocytes (%) (Auto) 25 % (24-48) Monocytes (%) (Auto) 7 % (0-9) Eosinophils (%) (Auto) 4 % (0-3) Basophils (%) (Auto) 1 % (0-3) Neutrophils # (Auto) 3.8 x10^3/uL (1.8-7.7) Lymphocytes # (Auto) 1.5 x10^3/uL (1.0-4.8) Monocytes # (Auto) 0.4 x10^3/uL (0.0-1.1) Eosinophils # (Auto) 0.2 x10^3/uL (0.0-0.7) Basophils # (Auto) 0.0 x10^3/uL (0.0-0.2) Sodium Level 138 mmol/L (136-145) Potassium Level 4.1 mmol/L (3.5-5.1) Chloride Level 104 mmol/L (98-107) Carbon Dioxide Level 25 mmol/L (21-32) Anion Gap 9 (6-14) Blood Urea Nitrogen 16 mg/dL (8-26) Creatinine 1.1 mg/dL (0.7-1.3) Estimated GFR (Cockcroft-Gault) 72.7 BUN/Creatinine Ratio 15 (6-20) Glucose Level 201 mg/dL (70-99) Calcium Level 8.7 mg/dL (8.5-10.1) Total Bilirubin 0.6 mg/dL (0.2-1.0) Aspartate Amino Transf (AST/SGOT) 39 U/L (15-37) Alanine Aminotransferase (ALT/SGPT) 17 U/L (16-63) Alkaline Phosphatase 70 U/L (46-116) Total Protein 6.6 g/dL (6.4-8.2) Albumin 2.9 g/dL (3.4-5.0) Albumin/Globulin Ratio 0.8 (1.0-1.7) Glucose (Fingerstick) 179 mg/dL (70-99) 256 mg/dL (70-99) Laboratory Tests Test 07/13/19 16:03 07/14/19 07:35 07/14/19 08:34 07/14/19 12:25 Glucose (Fingerstick) 222 mg/dL (70-99) 179 mg/dL (70-99) 256 mg/dL (70-99) White Blood Count 6.1 x10^3/uL (4.0-11.0) Red Blood Count 4.93 x10^6/uL (4.30-5.70) Hemoglobin 16.2 g/dL (13.0-17.5) Hematocrit 47.4 % (39.0-53.0) Mean Corpuscular Volume 96 fL (79-100) Mean Corpuscular Hemoglobin 33 pg (25-35) Mean Corpuscular Hemoglobin Concent 34 g/dL (31-37) Red Cell Distribution Width 13.0 % (11.5-14.5) Platelet Count 173 x10^3/uL (140-400) Neutrophils (%) (Auto) 63 % (31-73) Lymphocytes (%) (Auto) 25 % (24-48) Monocytes (%) (Auto) 7 % (0-9) Eosinophils (%) (Auto) 4 % (0-3) Basophils (%) (Auto) 1 % (0-3) Neutrophils # (Auto) 3.8 x10^3/uL (1.8-7.7) Lymphocytes # (Auto) 1.5 x10^3/uL (1.0-4.8) Monocytes # (Auto) 0.4 x10^3/uL (0.0-1.1) Eosinophils # (Auto) 0.2 x10^3/uL (0.0-0.7) Basophils # (Auto) 0.0 x10^3/uL (0.0-0.2) Sodium Level 138 mmol/L (136-145) Potassium Level 4.1 mmol/L (3.5-5.1) Chloride Level 104 mmol/L (98-107) Carbon Dioxide Level 25 mmol/L (21-32) Anion Gap 9 (6-14) Blood Urea Nitrogen 16 mg/dL (8-26) Creatinine 1.1 mg/dL (0.7-1.3) Estimated GFR (Cockcroft-Gault) 72.7 BUN/Creatinine Ratio 15 (6-20) Glucose Level 201 mg/dL (70-99) Calcium Level 8.7 mg/dL (8.5-10.1) Total Bilirubin 0.6 mg/dL (0.2-1.0) Aspartate Amino Transf (AST/SGOT) 39 U/L (15-37) Alanine Aminotransferase (ALT/SGPT) 17 U/L (16-63) Alkaline Phosphatase 70 U/L (46-116) Total Protein 6.6 g/dL (6.4-8.2) Albumin 2.9 g/dL (3.4-5.0) Albumin/Globulin Ratio 0.8 (1.0-1.7) Brief Hospital Course Mr. Armstrong is a 43 old [white male with not so ideal lifestyle/habits comes in for concerning CHEST PAIN story and LHC done needed PCI, NEw meds, Effient, plus nTG SL. HE already takes rachel inhib for kidney probs/CKD NOT for hypotension, HE is chest pain free, right wrist looks fine, I educated on compliance and no etoh smoking NO PT needs 2 notes today Discharge Information Condition at Discharge: Improved, Stable Follow Up: Weeks (cards as instructed) Disposition/Orders: D/C to Home Scheduled Aspirin (Aspirin) 81 Mg Tab.chew, 81 MG PO DAILY for heart health, (Reported) Entered as Reported by: KRISTEL EMERY on 07/13/19948 Last Action: New Order on 07/13/19948 by KRISTEL EMERY Atorvastatin Calcium (Atorvastatin Calcium) 40 Mg Tablet, 40 MG PO HS for FOR CHOLESTEROL, #30 Ref 0 (Reported) Entered as Reported by: KRISTEL EMERY on 07/13/19948 Last Action: New Order on 07/13/19948 by KRISTEL EMERY Canagliflozin (Invokana) 300 Mg Tablet, 300 MG PO DAILY for blood sugars, (Reported) Entered as Reported by: KRISTEL EMERY on 07/13/19948 Last Action: New Order on 07/13/19948 by KRISTEL EMERY Gabapentin (Gabapentin ) 300 Mg Capsule, 300 MG PO TID for NEUROGENIC PAIN, (Reported) Entered as Reported by: KRISTEL EMERY on 07/13/19948 Last Action: New Order on 07/13/19948 by KRISTEL EMERY Insulin Glargine,Hum.rec.anlog (Lantus Solostar) 100 Unit/1 Ml Insuln.pen, 40 UNIT SQ DAILY for blood sugars, (Reported) Entered as Reported by: KRISTEL EMERY on 07/13/19948 Last Action: New Order on 07/13/19948 by KRISTEL EMERY Insulin Glargine,Hum.rec.anlog (Lantus Solostar) 100 Unit/1 Ml Insuln.pen, 20 UNIT SQ QHS for blood sugar, (Reported) Entered as Reported by: KRISTEL EMERY on 07/13/19948 Last Action: New Order on 07/13/19948 by KRISTEL EMERY Ipratropium/Albuterol Sulfate (Combivent Respimat Inhal) 4 Gm Aer.w.adap, 2 INH IH QID for respiratory, (Reported) Entered as Reported by: KRISTEL EMERY on 07/13/19948 Last Action: New Order on 07/13/19948 by KRISTEL EMERY Levothyroxine Sodium (Synthroid) 100 Mcg Tablet, 100 MCG PO DAILYAC for THYROID SUPPLEMENT, #30 Ref 0 (Reported) Entered as Reported by: KRISTEL EMERY on 07/13/19948 Last Action: New Order on 07/13/19948 by KRISTEL EMERY Lisinopril (Lisinopril) 20 Mg Tablet, 20 MG PO DAILY for FOR HYPERTENSION, #30 Ref 0 (Reported) Entered as Reported by: KRISTEL EMERY on 07/13/19948 Last Action: New Order on 07/13/19948 by KRISTEL EMERY Prasugrel Hcl (Effient) 10 Mg Tablet, 10 MG PO DAILYWBKFT for cad pci for 30 Days, #30 Prescribed by: BHARAT QUICK on 07/14/19 1242 Sitagliptin Phosphate (Januvia) 50 Mg Tablet, 50 MG PO QHS for blood sugars, (Reported) Entered as Reported by: KRISTEL EMERY on 07/13/19948 Last Action: New Order on 07/13/19948 by KRISTEL EMERY Tizanidine Hcl (Tizanidine Hcl) 4 Mg Tablet, 8 MG PO QHS for muscle relaxer, (Reported) Entered as Reported by: KRISTEL EMERY on 07/13/19948 Last Action: New Order on 07/13/19948 by KRISTEL EMERY Scheduled PRN Albuterol Sulfate (Proair Hfa Inhaler) 8.5 Gm Hfa.aer.ad, 2 PUFF IH PRN Q4-6HRS PRN for wheezing for 21 Days, #1 Ref 0 Prescribed by: Deandra Lowe APRN on 07/06/19 1524 Nitroglycerin (Nitrostat) 0.4 Mg Tab.subl, 0.4 MG SL PRN Q5MIN PRN for CHEST PAIN, #60 Prescribed by: BHARAT QUICK on 07/14/19 1242 BHARAT QUICK MD Jul 14, 2019 12:45
[2019-07-14] MEDS ORDERED: LISI-338 PO (13:58)
[2019-07-14] MEDS ORDERED: LOVA20TA2 PO (13:58)
--- NOTE | 2019-07-14 14:54 | NUR ---
Discharge Note: [facility] Discharge instructions and discharge home medications reviewed with Patient and a copy given. All questions have been answered and understanding verbalized. The following instructions and handouts were given: smoking cessation, NSTEMI info, post cath info, stent info, discharge instructions, prescriptions. Discontinued lines and drains: Peripheral IV intact. Patient discharged to Home or Self Care with Significant Other via Ambulated at 1454.
[2019-07-14] MEDS ORDERED: METO25TA4 PO (15:47)
--- NOTE | 2019-07-14 15:50 | PDOC ---
CARDIO Progress Notes Date and Time Date of Service 07/14/19 Time of Evaluation 1310 Subjective Subjective: No Chest Pain, No shortness of breath, No Palpitations Vitals Vitals Vital Signs Date Time Temp Pulse Resp B/P (MAP) Pulse Ox O2 Delivery O2 Flow Rate FiO2 07/14/19 12:14 95 Room Air 07/14/19 11:35 97.7 84 20 120/82 (95) 97.7 07/13/19 11:09 2.0 Weight Weight [ ] Input and Output Intake and Output Intake and Output 07/14/19 07:00 Intake Total 1950 ml Output Total 6200 ml Balance -4250 ml Intake Oral 1500 ml IV Total 450 ml Output Urine Total 6200 ml Laboratory Labs Laboratory Tests Test 07/13/19 16:03 07/14/19 07:35 07/14/19 08:34 07/14/19 12:25 Glucose (Fingerstick) 222 mg/dL (70-99) 179 mg/dL (70-99) 256 mg/dL (70-99) White Blood Count 6.1 x10^3/uL (4.0-11.0) Red Blood Count 4.93 x10^6/uL (4.30-5.70) Hemoglobin 16.2 g/dL (13.0-17.5) Hematocrit 47.4 % (39.0-53.0) Mean Corpuscular Volume 96 fL (79-100) Mean Corpuscular Hemoglobin 33 pg (25-35) Mean Corpuscular Hemoglobin Concent 34 g/dL (31-37) Red Cell Distribution Width 13.0 % (11.5-14.5) Platelet Count 173 x10^3/uL (140-400) Neutrophils (%) (Auto) 63 % (31-73) Lymphocytes (%) (Auto) 25 % (24-48) Monocytes (%) (Auto) 7 % (0-9) Eosinophils (%) (Auto) 4 % (0-3) Basophils (%) (Auto) 1 % (0-3) Neutrophils # (Auto) 3.8 x10^3/uL (1.8-7.7) Lymphocytes # (Auto) 1.5 x10^3/uL (1.0-4.8) Monocytes # (Auto) 0.4 x10^3/uL (0.0-1.1) Eosinophils # (Auto) 0.2 x10^3/uL (0.0-0.7) Basophils # (Auto) 0.0 x10^3/uL (0.0-0.2) Sodium Level 138 mmol/L (136-145) Potassium Level 4.1 mmol/L (3.5-5.1) Chloride Level 104 mmol/L (98-107) Carbon Dioxide Level 25 mmol/L (21-32) Anion Gap 9 (6-14) Blood Urea Nitrogen 16 mg/dL (8-26) Creatinine 1.1 mg/dL (0.7-1.3) Estimated GFR (Cockcroft-Gault) 72.7 BUN/Creatinine Ratio 15 (6-20) Glucose Level 201 mg/dL (70-99) Calcium Level 8.7 mg/dL (8.5-10.1) Total Bilirubin 0.6 mg/dL (0.2-1.0) Aspartate Amino Transf (AST/SGOT) 39 U/L (15-37) Alanine Aminotransferase (ALT/SGPT) 17 U/L (16-63) Alkaline Phosphatase 70 U/L (46-116) Total Protein 6.6 g/dL (6.4-8.2) Albumin 2.9 g/dL (3.4-5.0) Albumin/Globulin Ratio 0.8 (1.0-1.7) Physical Exam HEENT: Neck Supple W Full Motion Chest: Symmetric LUNGS: Clear to Auscultation Heart: S1S2, RRR, no thrills, no rubs, no gallops, no murmurs Abdomen: Soft N/T Extremities: No Edema Neurology: alert, oriented, follow commands Assessment Assessment 1. NSTEMI 2. CAD s/p PCI/FERNANDO to LAD. No acute events overnight. Echo with preserved LV systolic function 3. Hypertension; controlled 4. Hyperlipidemia; statin 5. Diabetes, II 6. Tobaccoism; discussed/encouraged cessation Recommendations Secondary prevention including DAPT with ASA, Effient Add BB. Continue ACEi, statin Cardiac rehab referral; may not be feasible as he does not have insurance. May discharge from a CV standpoint and f/u in our office with Dr. Kenney . DEANDRE OROPEZA APRN Jul 14, 2019 15:50
[2019-07-14] MEDS ORDERED: tiZANidine 4 MG TABLET. PO SCH (21:00)
== END 2019-07-14 18:00 | disposition home or self-care (01) | DRG 247 ==
LOC: ER 04:32 → 1 WEST ICU 05:30
PROVIDERS: ADMIT Family Medicine; ATTEND Family Medicine
PROC: 4A023N7 Measurement of Cardiac Sampling and Pressure, Left Heart, Percutaneous Approach (ICD-10-PCS; principal; 2019-07-13)
PROC: 027034Z Dilation of Coronary Artery, One Artery with Drug-eluting Intraluminal Device, Percutaneous Approach (ICD-10-PCS; 2019-07-13)
PROC: B211YZZ Fluoroscopy of Multiple Coronary Arteries using Other Contrast (ICD-10-PCS; 2019-07-13)
PROC: B215YZZ Fluoroscopy of Left Heart using Other Contrast (ICD-10-PCS; 2019-07-13)
DX: I21.4 Non-ST elevation (NSTEMI) myocardial infarction (principal); K21.9 Gastro-esophageal reflux disease without esophagitis; E78.00 Pure hypercholesterolemia, unspecified; I25.10 Atherosclerotic heart disease of native coronary artery without angina pectoris; E03.9 Hypothyroidism, unspecified; F17.210 Nicotine dependence, cigarettes, uncomplicated; N18.9 Chronic kidney disease, unspecified; E11.22 Type 2 diabetes mellitus with diabetic chronic kidney disease; E78.5 Hyperlipidemia, unspecified; I12.9 Hypertensive chronic kidney disease with stage 1 through stage 4 chronic kidney disease, or unspecified chronic kidney disease; E66.9 Obesity, unspecified; D75.1 Secondary polycythemia; Z68.31 Body mass index [BMI] 31.0-31.9, adult; Z79.82 Long term (current) use of aspirin; Z87.01 Personal history of pneumonia (recurrent); Z87.11 Personal history of peptic ulcer disease; Z88.0 Allergy status to penicillin; Z88.2 Allergy status to sulfonamides; Z88.8 Allergy status to other drugs, medicaments and biological substances; Z91.11 Patient's noncompliance with dietary regimen; Z82.49 Family history of ischemic heart disease and other diseases of the circulatory system
CPT/HCPCS: 36415; 71045; 80047; 80053; 80061; 82962; 83036; 83735; 83880; 84443; 84484; 85025; 85347; 90471; 90686; 92928; 93005; 93306; 93458; 94640; 99152; 99153; 99406; C1725; C1769; C1874; C1887; C1892; J1644; J1815; J2250; J2270; J3010; J3490; J7030; J7613; J7620; Q9967; C1713; G0378; J3246